=== PATIENT | female | born 1955 | race Caucasian/White ===

== ENCOUNTER 2017-06-13 12:08 | Emergency (ER) | payer OTHER, SELFPAY ==
[2017-06-13 12:25] VITALS: BP 143/80; PULSE 81; RESP 18; TEMP 37.2; O2SAT 98; BMI 27.3
--- NOTE | 2017-06-13 13:34 | PC.NURSE ---
Lac was rvwd by me the minute the patient arrived. Cleaned well w/ NS. Needs sutures and therefore transfer to ER. Pt wants to be sure before transfer and have ER MD evaluate before transfer. Tried multiple times to contact Dr. Lara. He is aware he needs to evaluate but has been suturing and on the phone with . At 1330, he agrees wound needs sutures. Pt transferred to ER for sutures
[2017-06-13 13:43] VITALS: BP 137/76; PULSE 66; RESP 18; TEMP 36.6; O2SAT 97; BMI 20.2
--- NOTE | 2017-06-13 14:16 | HMH.EDGENADL ---
ED Disposition Clinical Impression: Laceration of right forearm without complication, Laceration Disposition: Home, Self-Care Condition on Discharge: Fair Instructions: DI for Laceration Repair Additional Instructions: Keep stitches dry for first 2 days and have stitches taken out in 9 to 10 days Referrals: Can Isaacs MD [Primary Care Provider] - Time of Disposition: 14:40 - Critical Care Critical Care Time: No Attestation: On 06/13/17, the high probability of a clinically significant, sudden or life threatening deterioration of the following system(s) required my full and direct attention, intervention and personal management. The time I documented below is in addition to time spent performing reported procedures but includes the following listed in this critical care notation. Medical Decision Making - Medical Records Medical records reviewed: Yes: I reviewed the patient's medical records. Vital Signs: 06/13/17 12:25 06/13/17 13:43 Temperature 98.9 F 97.9 F Temperature Source Temporal Artery Scan Oral Pulse Rate [Left] 81 66 Respiratory Rate 18 18 Blood Pressure [Left Arm] 143/80 137/76 Blood Pressure Mean [Left Arm] 101 96 Blood Pressure Source [Left Arm] Automatic Cuff Automatic Cuff Blood Pressure Position [Left Arm] Sitting Sitting 02 Sat by Pulse Oximetry 98 97 Oxygen Delivery Method Room Air Room Air - Tony Inquiry Pt receiving controlled substance: No Tony was queried for this patient: No General Adult HPI - General Chief complaint: Wound/Laceration Stated complaint: AO [id number] RIGHT ARM LAC Mode of Arrival: Ambulatory Source of Information: Patient Limitations: No Limitations Description of Symptoms (Recalled from ER Triage Doc. by RN): Pt fell in her home this morning and cut her right forearm on a door threshold...no LOC and no other injury - History of Present Illness HPI narrative: Pt fell in home this AM and cut her right forearm on threshold in bathroom...no loc Onset (ago): hour(s) Location: upper extremity Severity: mild Severity scale (1-10): 2 Quality: sharp Consistency: intermittent Relieving factors: none - Related Data Home Medications Medication Instructions Recorded Confirmed Levothyroxine Sodium 100 mg PO DAILY 06/13/17 06/13/17 [Levothyroxine 100mcg (0.1MG) Tab] Allergies Allergy/AdvReac Type Severity Reaction Status Date / Time No Known Allergies Allergy Verified 06/13/17 12:31 [facility] History I have reviewed the patient's past medical history: Yes Laterality Cases: Right: Other Amputation: No Fractures: No - *Social History Educational Level: Completed High School Smoking Status: Former smoker Tobacco Type: cigarettes #Yrs smoked (if former smoker): 35 Alcohol Intake: never - Psychiatric History Expresses thoughts of harming self/others: None Suicide Plan Description: No Plan ROS Obtained: Yes All systems reviewed & no additional complaints Physical Exam - General General appearance: alert, in no apparent distress - Head Head exam: atraumatic - Eye Eye exam: Present: normal appearance - ENT ENT exam: Present: normal exam - Neck Neck exam: Present: normal inspection - Chest Chest inspection: Present: normal inspection - Respiratory Respiratory exam: Present: normal lung sounds bilaterally - Cardiovascular Cardiovascular exam: Present: regular rate - Abdominal Exam Abdominal exam: Present: soft - Extremities Exam Extremities exam: Present: other (4 cm laceration on right forearm dorsally) - Back Exam Back exam: Present: normal inspection - Neurological Exam Neurological exam: Present: alert, oriented X3, CN II-XII intact - Skin Skin exam: Present: other (laceration as described above) Procedures - Laceration Laceration 1 Site: upper extremity Side (If applicable): right Size (cm): 4 Description: linear Depth: simple, single layer Local Anesthetic: lidocaine 1% Amoun
--- NOTE | 2017-06-13 14:33 | ED_ITS ---
ED Disposition Clinical Impression: Laceration of right forearm without complication, Laceration Disposition: Home, Self-Care Condition on Discharge: Fair Instructions: DI for Laceration Repair Additional Instructions: Keep stitches dry for first 2 days and have stitches taken out in 9 to 10 days Referrals: Can Isaacs MD [Primary Care Provider] - Time of Disposition: 14:40 - Critical Care Critical Care Time: No Attestation: On 06/13/17, the high probability of a clinically significant, sudden or life threatening deterioration of the following system(s) required my full and direct attention, intervention and personal management. The time I documented below is in addition to time spent performing reported procedures but includes the following listed in this critical care notation. Medical Decision Making - Medical Records Medical records reviewed: Yes: I reviewed the patient's medical records. Vital Signs: 06/13/17 12:25 06/13/17 13:43 Temperature 98.9 F 97.9 F Temperature Source Temporal Artery Scan Oral Pulse Rate [Left] 81 66 Respiratory Rate 18 18 Blood Pressure [Left Arm] 143/80 137/76 Blood Pressure Mean [Left Arm] 101 96 Blood Pressure Source [Left Arm] Automatic Cuff Automatic Cuff Blood Pressure Position [Left Arm] Sitting Sitting 02 Sat by Pulse Oximetry 98 97 Oxygen Delivery Method Room Air Room Air - Tony Inquiry Pt receiving controlled substance: No Tony was queried for this patient: No General Adult HPI - General Chief complaint: Wound/Laceration Stated complaint: AO [id number] RIGHT ARM LAC Mode of Arrival: Ambulatory Source of Information: Patient Limitations: No Limitations Description of Symptoms (Recalled from ER Triage Doc. by RN): Pt fell in her home this morning and cut her right forearm on a door threshold...no LOC and no other injury - History of Present Illness HPI narrative: Pt fell in home this AM and cut her right forearm on threshold in bathroom...no loc Onset (ago): hour(s) Location: upper extremity Severity: mild Severity scale (1-10): 2 Quality: sharp Consistency: intermittent Relieving factors: none - Related Data Home Medications Medication Instructions Recorded Confirmed Levothyroxine Sodium 100 mg PO DAILY 06/13/17 06/13/17 [Levothyroxine 100mcg (0.1MG) Tab] Allergies Allergy/AdvReac Type Severity Reaction Status Date / Time No Known Allergies Allergy Verified 06/13/17 12:31 [facility] History I have reviewed the patient's past medical history: Yes Laterality Cases: Right: Other Amputation: No Fractures: No - *Social History Educational Level: Completed High School Smoking Status: Former smoker Tobacco Type: cigarettes #Yrs smoked (if former smoker): 35 Alcohol Intake: never - Psychiatric History Expresses thoughts of harming self/others: None Suicide Plan Description: No Plan ROS Obtained: Yes All systems reviewed & no additional complaints Physical Exam - General General appearance: alert, in no apparent distress - Head Head exam: atraumatic - Eye Eye exam: Present: normal appearance - ENT ENT exam: Present: normal exam - Neck Neck exam: Present: normal inspection - Chest Chest inspection: Present: normal inspection - Respiratory Respira
[2017-06-13 14:56] VITALS: BP 162/76; PULSE 82; RESP 18; TEMP 37.3
== END 2017-06-13 14:56 | disposition home or self-care (01) ==
LOC: UTC 12:33 → ER 13:42
PROVIDERS: Emergency Provider Nurse Practitioner Family; Family Provider Nurse Practitioner Family; PCP Internal Medicine Adolescent Medicine
DX: S51.811A Laceration without foreign body of right forearm, initial encounter (principal); W45.8XXA Other foreign body or object entering through skin, initial encounter; W22.8XXA Striking against or struck by other objects, initial encounter; Y92.012 Bathroom of single-family (private) house as the place of occurrence of the external cause; Z87.891 Personal history of nicotine dependence
CPT/HCPCS: 12002; 90471; 90714; 96372; 99203; 99282

== ENCOUNTER 2017-06-24 14:59 | Emergency (ER) | payer OTHER, SELFPAY | END 2017-06-24 15:17 | disposition home or self-care (01) | PROVIDERS: Emergency Provider Physician Assistant; Family Provider Nurse Practitioner Family; PCP Internal Medicine Adolescent Medicine | DX: S51.811D Laceration without foreign body of right forearm, subsequent encounter (principal) ==

== ENCOUNTER → 2017-08-08 08:33 | Outpatient (CLI) | payer OTHER, SELFPAY ==
[2017-08-08 09:09] LABS: Basophils % 0.4 % (0.1-2.0); Eosinophils # 0.2 K/mm3 (0.0-0.4); Eosinophils % 2.3 % (0.1-12.0); Hematocrit 41.9 % (37.0-47.0); Hemoglobin 14.6 g/dL (12.2-16.2); Lymphocytes # 1.6 K/mm3 (0.7-4.5); Lymphocytes % 26.1 K/mm3 (10-50); Mean Corpuscular HGB Conc 34.9 g/dL (31.8-35.4); Mean Corpuscular Hemoglobin 33.6 pg (27.0-31.2); Mean Corpuscular Volume 96.2 fl (81-99); Mean Platelet Volume 8.5 fl (7.4-10.4); Monocytes # 0.3 K/mm3 (0.1-1.0); Monocytes % 5.2 % (1.7-9.3); Neutrophils # 4.1 K/mm3 (1.8-7.8); Platelet Count 306 K/mm3 (142-424); Red Blood Count 4.36 M/mm3 (4.20-5.40); White Blood Count 6.3 K/mm3 (4.8-10.8)
[2017-08-08 09:14] LABS: Alanine Aminotransferase 29 U/L (12-78); Albumin Level 3.6 gm/dL (3.4-5.0); Albumin/Globulin Ratio 0.9 (1.1-1.8); Alkaline Phosphatase 122 U/L (46-116); Aspartate Amino Transferase 15 U/L (15-37); Bilirubin,Total 0.6 mg/dL (0.2-1.0); Blood Urea Nitrogen 10 mg/dL (7-18); Calcium 8.9 mg/dL (8.5-10.1); Carbon Dioxide 29 mmol/L (21.0-32.0); Chloride 103 mmol/L (98-107); Creatinine,Serum 0.69 mg/dL (0.55-1.02); Estimated Glomerular Filt Rate 86 ml/min (>60); Free T4 (Free Thyroxine) 1.37 ng/dl (0.76-1.46); GFR (African American) 105 ML/MIN (>60); Glucose 103 mg/dL (74-106); Sodium 131 mmol/L (136-145); Thyroid Stimulating Hormone 0.06 uIU/ml (0.358-3.740); Total Protein,Serum 7.6 gm/dL (6.4-8.2)
[2017-08-11 11:52] LABS: Vitamin B12 600 pg/mL (232-1245)
== END ==
PROVIDERS: Visit Provider Nurse Practitioner Family
DX: E03.9 Hypothyroidism, unspecified (principal); H81.10 Benign paroxysmal vertigo, unspecified ear
CPT/HCPCS: 36415; 80053; 82607; 84439; 84443; 85025

== ENCOUNTER → 2017-08-31 09:57 | Outpatient (CLI) | payer OTHER, SELFPAY ==
--- NOTE | 2017-08-31 10:29 | MR_ITS ---
MR head/brain wo/w con HISTORY: Vertigo, visual disturbance/changes, unsteady balance ITS.REASON: POSTURAL VERTIGO, HYPONATREMIA, VISUAL CHANGES ORDERING PHYSICIAN: Can Isaasc MD PATIENT AGE: 62 years COMPARISON: None TECHNIQUE: Standard multiplanar multiecho sequences are performed without and with gadolinium enhancement. FINDINGS: There is a partially empty sella as a normal variant. No midline shift or mass effect is evident. No enhancing lesions. No evidence of acute infarction The cerebellopontine angles, cerebellum, and brainstem are unremarkable. The optic chiasm and corpus callosum have an unremarkable appearance. The hippocampal gyri are unremarkable in the temporal horns are symmetric. No hydrocephalus. No large aneurysms. Small aneurysms may not be detected with this technique and may be better evaluated for with MRA clinically warranted. There is normal white-bennett matter differentiation with no abnormal white matter signal intensity evident. Small amount fluid is present in the left mastoid sinus. No sinus air-fluid level. Incidental note is made of degenerative disc disease with bulging disc along with posterior facet hypertrophy at C3-C4 with canal stenosis of approximately 8 mm. This may be better evaluated with dedicated cervical spine MRI if clinically warranted. IMPRESSION: 1. Negative MRI of the brain without and with contrast. 2. Small amount fluid in the left mastoid sinus. 3. Degenerative disc disease with bulging disc and spinal stenosis at
--- NOTE | 2017-08-31 11:18 | US_ITS ---
US thyroid HISTORY: ITS.REASON: HYPOTHYROIDISM ORDERING PHYSICIAN: Can Isaacs MD PATIENT AGE: 62 years COMPARISON: None FINDINGS: The right lobe is 2.8 x 1 x 1.4 cm. The left lobe is 2.3 x 0.9 x 1.3 cm. Thyroid gland has a heterogeneous cystic spongiform appearance on both sides. No solid nodules are evident.. IMPRESSION: Spongiform cystic appearance of a small thyroid gland bilaterally with no dominant solid nodules evident
== END ==
PROVIDERS: Family Provider Nurse Practitioner Family; PCP Internal Medicine Adolescent Medicine; Visit Provider Internal Medicine Adolescent Medicine
DX: H81.10 Benign paroxysmal vertigo, unspecified ear (principal); E87.1 Hypo-osmolality and hyponatremia; H53.9 Unspecified visual disturbance; E03.9 Hypothyroidism, unspecified
CPT/HCPCS: 70553; 76536; A9576

== ENCOUNTER → 2018-02-09 07:12 | Outpatient (CLI) | payer OTHER, SELFPAY ==
[2018-02-09 08:17] LABS: Alanine Aminotransferase 21 U/L (12-78); Albumin Level 3.7 gm/dL (3.4-5.0); Albumin/Globulin Ratio 1.1 (1.1-1.8); Alkaline Phosphatase 119 U/L (46-116); Anion Gap 8.8 mEq/L (5-15); Aspartate Amino Transferase 10 U/L (15-37); Bilirubin,Total 0.5 mg/dL (0.2-1.0); Blood Urea Nitrogen 10 mg/dL (7-18); Calcium 8.9 mg/dL (8.5-10.1); Carbon Dioxide 30 mmol/L (21.0-32.0); Chloride 108 mmol/L (98-107); Chol/HDL Ratio 3.5 (1-3.5); Cholesterol 214 mg/dL (140-200); Creatinine,Serum 0.88 mg/dL (0.55-1.02); Estimated Glomerular Filt Rate 65 ml/min (>60); GFR (African American) 79 ML/MIN (>60); Globulin 3.3 gm/dl (1.3-3.2); Glucose 102 mg/dL (74-106); HDL Cholesterol 62 mg/dL (29-89); LDL Cholesterol 136 mg/dL (0-130); Potassium 4.8 mmoL/L (3.5-5.1); Sodium 142 mmol/L (136-145); Thyroid Stimulating Hormone 7.26 uIU/ml (0.358-3.740); Triglycerides 78 mg/dL (30-200); VLDL Cholesterol 16 mg/dL (0-40)
== END ==
PROVIDERS: PCP Internal Medicine Adolescent Medicine; Visit Provider Nurse Practitioner Family
DX: E78.00 Pure hypercholesterolemia, unspecified (principal); E03.9 Hypothyroidism, unspecified; H81.10 Benign paroxysmal vertigo, unspecified ear
CPT/HCPCS: 36415; 80053; 80061; 84443

== ENCOUNTER → 2018-02-23 08:09 | Outpatient (CLI) | payer OTHER, SELFPAY ==
--- NOTE | 2018-02-23 08:14 | MM_ITS ---
MM Dig screening mamm BI w/CAD CAD Screening COMPARISON: Digital mammograms with CAD 07/21/2016 and 07/07/2015 INDICATION: There is a history of breast cancer patient's paternal aunt. TECHNIQUE: Standard CC and MLO images were obtained. R2 CAD reviewed. FINDINGS: Moderate fibroglandular densities are seen in the central portions of both breast and the findings are bilateral and symmetrical. There are few benign-appearing calcifications in each breast and there is arterial calcification left breast. There is no suspicious lesion and there are no suspicious microcalcifications. IMPRESSION: Fibrofatty parenchyma no suspicious lesion seen BI-RADS Category: 2 Benign Finding(s) RECOMMENDED FOLLOW-UP: 1YR - 1 YEAR FOLLOW-UP (A letter has been sent to the patient regarding results of the study.)
== END ==
PROVIDERS: Family Provider Nurse Practitioner Family; PCP Internal Medicine Adolescent Medicine; Visit Provider Nurse Practitioner Family
DX: Z12.31 Encounter for screening mammogram for malignant neoplasm of breast (principal)
CPT/HCPCS: 77067

== ENCOUNTER → 2018-03-22 08:10 | Outpatient (CLI) | payer OTHER, SELFPAY ==
[2018-03-22 10:49] LABS: Thyroid Stimulating Hormone 0.22 uIU/ml (0.358-3.740)
== END ==
PROVIDERS: PCP Nurse Practitioner Family; Visit Provider Nurse Practitioner Family
DX: E03.9 Hypothyroidism, unspecified (principal)
CPT/HCPCS: 36415; 84443

== ENCOUNTER → 2018-07-27 09:25 | Outpatient (CLI) | payer OTHER, SELFPAY ==
[2018-07-27 10:46] LABS: Alanine Aminotransferase 19 U/L (12-78); Albumin Level 3.5 gm/dL (3.4-5.0); Albumin/Globulin Ratio 1.1 (1.1-1.8); Alkaline Phosphatase 115 U/L (46-116); Aspartate Amino Transferase 11 U/L (15-37); Bilirubin,Total 0.4 mg/dL (0.2-1.0); Blood Urea Nitrogen 12 mg/dL (7-18); Carbon Dioxide 28 mmol/L (21.0-32.0); Chloride 105 mmol/L (98-107); Chol/HDL Ratio 3.1 (1-3.5); Cholesterol 211 mg/dL (140-200); Creatinine,Serum 0.69 mg/dL (0.55-1.02); Estimated Glomerular Filt Rate 86 ml/min (>60); Free T4 (Free Thyroxine) 1.27 ng/dl (0.76-1.46); GFR (African American) 104 ML/MIN (>60); Globulin 3.1 gm/dl (1.3-3.2); Glucose 93 mg/dL (74-106); HDL Cholesterol 69 mg/dL (29-89); LDL Cholesterol 130 mg/dL (0-130); Sodium 140 mmol/L (136-145); Thyroid Stimulating Hormone 0.14 uIU/ml (0.358-3.740); Total Protein,Serum 6.6 gm/dL (6.4-8.2); Triglycerides 58 mg/dL (30-200); VLDL Cholesterol 12 mg/dL (0-40)
== END ==
PROVIDERS: Visit Provider Nurse Practitioner Family
DX: E78.00 Pure hypercholesterolemia, unspecified (principal); E03.9 Hypothyroidism, unspecified
CPT/HCPCS: 36415; 80053; 80061; 84439; 84443

== ENCOUNTER → 2018-08-28 08:51 | Outpatient (CLI) | payer OTHER, SELFPAY ==
[2018-08-28 10:39] LABS: Blood Urea Nitrogen 9 mg/dL (7-18); Estimated Glomerular Filt Rate 85 ml/min (>60); GFR (African American) 103 ML/MIN (>60)
== END ==
PROVIDERS: Visit Provider Nurse Practitioner Family
DX: R91.1 Solitary pulmonary nodule (principal)
CPT/HCPCS: 36415; 82565; 84520

== ENCOUNTER → 2018-08-30 09:22 | Outpatient (CLI) | payer OTHER, SELFPAY ==
--- NOTE | 2018-08-30 09:28 | CT_ITS ---
CT chest wo/w con HISTORY: Follow-up pulmonary nodule ITS.REASON: PULMONARY NODULE ORDERING PHYSICIAN: Kasandra Martin PATIENT AGE: 63 years COMPARISON: 01/14/2017 Technique: Axial images obtained without and following the administration of 75 mL of Optiray 350 . Sagittal, and coronal reformatted images are also generated and reviewed. All CT scans at the facility use one or more dose reduction, viz: automated exposure control, ma/kV adjustment per patient size (including targeted exams where dose is matched to indication, i.e. head), or iterative reconstruction technique. FINDINGS: No mediastinal or hilar mass or adenopathy. There is normal heart size without evidence of pericardial effusion. No evidence of aortic aneurysm or central pulmonary embolus. The unenhanced images do not demonstrate any coronary artery calcifications. There is a small hiatal hernia with mild thickening of the distal esophagus nonspecific There are a few faint scattered nodular opacities as seen on the previous exam which are not significant changed largest in the right apex at approximately 5 mm which appears stable. No new nodules are demonstrated. No effusions or infiltrates. No enhancing lesions. IMPRESSION: Overall stable CT appearance of the chest with no change in the scattered small pulmonary nodular opacities. No acute finding
== END ==
PROVIDERS: PCP Nurse Practitioner Family; Visit Provider Nurse Practitioner Family
DX: R91.1 Solitary pulmonary nodule (principal)
CPT/HCPCS: 71270

== ENCOUNTER → 2018-10-26 07:07 | Outpatient (CLI) | payer OTHER, SELFPAY ==
[2018-10-26 10:00] LABS: Alanine Aminotransferase 25 U/L (12-78); Albumin Level 3.7 gm/dL (3.4-5.0); Albumin/Globulin Ratio 1.2 (1.1-1.8); Alkaline Phosphatase 123 U/L (46-116); Anion Gap 15.7 mEq/L (5-15); Aspartate Amino Transferase 15 U/L (15-37); Bilirubin,Total 0.6 mg/dL (0.2-1.0); Blood Urea Nitrogen 7 mg/dL (7-18); Carbon Dioxide 27 mmol/L (21.0-32.0); Chloride 105 mmol/L (98-107); Chol/HDL Ratio 2.4 (1-3.5); Cholesterol 158 mg/dL (140-200); Creatinine,Serum 0.74 mg/dL (0.55-1.02); Estimated Glomerular Filt Rate 80 ml/min (>60); GFR (African American) 96 ML/MIN (>60); Globulin 3.2 gm/dl (1.3-3.2); Glucose 98 mg/dL (74-106); HDL Cholesterol 65 mg/dL (29-89); LDL Cholesterol 80 mg/dL (0-130); Potassium 4.7 mmoL/L (3.5-5.1); Sodium 143 mmol/L (136-145); Total Protein,Serum 6.9 gm/dL (6.4-8.2); Triglycerides 64 mg/dL (30-200); VLDL Cholesterol 13 mg/dL (0-40)
== END ==
PROVIDERS: Visit Provider Nurse Practitioner Family
DX: E78.00 Pure hypercholesterolemia, unspecified (principal); E03.9 Hypothyroidism, unspecified
CPT/HCPCS: 36415; 80053; 80061; 84443

== ENCOUNTER → 2018-11-02 11:20 | Outpatient (CLI) | payer OTHER, SELFPAY ==
--- NOTE | 2018-11-02 11:25 | XR_ITS ---
XR sacroiliac joint BI min 3V CLINICAL INDICATION: ITS.REASON: LEFT HIP PAIN,SACROCOCCYGEAL DISORDER ORDERING PHYSICIAN: Kasandra Martin APRN PATIENT AGE: 63 years Comparison: None FINDINGS: Its side joint 7 unremarkable appearance. There are mild osteoarthritic changes of both hips. IMPRESSION: Negative SI joints
--- NOTE | 2018-11-02 11:25 | XR_ITS ---
XR hip LT 2-3V w/pelvis HISTORY: ITS.REASON: LEFT HIP PAIN,SACROCOCCYGEAL DISORDER ORDERING PHYSICIAN: Kasandra Martin APRN PATIENT AGE: 63 years COMPARISON: None FINDINGS: Mild osteoarthritic changes are present involving the both hips. No fracture or dislocation. IMPRESSION: Osteoarthritis of the hips
== END ==
PROVIDERS: PCP Nurse Practitioner Family; Visit Provider Nurse Practitioner Family
DX: M25.552 Pain in left hip (principal); G89.29 Other chronic pain; M16.0 Bilateral primary osteoarthritis of hip; M53.3 Sacrococcygeal disorders, not elsewhere classified
CPT/HCPCS: 72202; 73502

== ENCOUNTER 2018-12-14 08:30 | Outpatient (RCR) | payer OTHER, SELFPAY ==
--- NOTE | 2018-11-08 08:42 | HMH.PTOPEV ---
PT Outpatient Evaluation Rehab PT Outpatient Evaluation Start: 11/08/18 08:32 Freq: Status: Active Protocol: Document 11/08/18 08:32 RADHA (Rec: 11/08/18 08:42 [email or web address] [id number]) Electronically Signed By Rush Li, PT 11/08/18 08:32 Outpatient Therapy Subjective History Subjective History Patient is a 63 year old female presenting to outpatient PT with reports of chronic L hip pain of insidious onset starting approximately 1 year ago. Most recent diagnostics indicate L hip OA per patient report. Comorbidities include hypothyroidism and HLD. Special tests indicate L upslip of the innominant. Signs and symptoms consistent with L trochanteric bursitis. Chief Complaint Pain Symptom Type Ache,Sharp Symptoms Relieved By Rest/Positioning,OTC Meds Symptoms Aggravated By Standing,Physical Activity, Walking Prior Functional Limitations None Current Functional Limitations Lifting,Housework,Sleeping, Standing,Squatting,Recreation Activity,Walking,Stairs Symptom Description Intermittent Level of pain today (0-10) 5 Pain scale - at its best (0-10) 0 Pain scale - at its worst (0-10) 5 Hip/Knee Eval Gait Observation General Gait Pattern Observation No Deviations/Normal Assistive Device Assistive Devices None / NA Palpation Tenderness left Knee Palpation Overall Comment L greater trochanter Hip Palpation Findings Tenderness MMT Hip Flexion Strength Grade 4 Good Hip Abduction Strength Grade 4 Good Hip Adduction Strength Grade 4- Good- Hip External Rotation Strength Grade 4- Good- Hip Internal Rotation Strength Grade 4- Good- Knee Extension Strength Grade 4 Good Knee Flexion Strength Grade 4 Good ROM Hip Flexion w/Knee Flexed Active Range 110 of Motion (degrees) Hip Flexion w/Knee Extended Active Range 90 of Motion (degrees) Hip Abduction Active Range of Motion ( 41 degrees) Hip Extension Active Range of Motion ( 5 degrees) Hip External Rotation Active Range of 40 Motion (degrees) Hip Internal Rotation Active Range of 7 Motion (degrees) Knee ROM Reason Not Measured Within Functional Limits DTR bilateral Rt Patellar 2+ Lt Patellar
== END 2018-12-14 08:35 | disposition home or self-care (01) ==
LOC: PT 08:30
PROVIDERS: Visit Provider Nurse Practitioner Family
DX: M25.552 Pain in left hip (principal)
CPT/HCPCS: 97010; 97014; 97033; 97110; 97163; G0283

== ENCOUNTER → 2019-01-30 08:19 | Outpatient (CLI) | payer OTHER, SELFPAY ==
[2019-01-30 10:24] LABS: Free T4 (Free Thyroxine) 1.36 ng/dl (0.76-1.46); Thyroid Stimulating Hormone 0.13 uIU/ml (0.358-3.740)
== END ==
PROVIDERS: Visit Provider Nurse Practitioner Family
DX: E03.9 Hypothyroidism, unspecified (principal)
CPT/HCPCS: 36415; 84439; 84443

== ENCOUNTER → 2019-07-28 07:36 | Outpatient (CLI) | payer OTHER, SELFPAY ==
[2019-07-28 08:18] LABS: Basophils % 0.6 % (0.1-2.0); Eosinophils # 0.2 K/mm3 (0.0-0.4); Eosinophils % 2.7 % (0.1-12.0); Hematocrit 42.1 % (37.0-47.0); Hemoglobin 14.1 g/dL (12.2-16.2); Lymphocytes # 1.8 K/mm3 (0.7-4.5); Lymphocytes % 29.5 % (10-50); Mean Corpuscular HGB Conc 33.5 g/dL (31.8-35.4); Mean Corpuscular Hemoglobin 31.4 pg (27.0-31.2); Mean Corpuscular Volume 93.8 fl (81-99); Mean Platelet Volume 8.9 fl (7.4-10.4); Monocytes # 0.3 K/mm3 (0.1-1.0); Monocytes % 5.1 % (1.7-9.3); Neutrophils # 3.8 K/mm3 (1.8-7.8); Neutrophils % 62.2 % (37.0-80.0); Platelet Count 294 K/mm3 (142-424); Red Blood Count 4.49 M/mm3 (4.20-5.40); White Blood Count 6.1 K/mm3 (4.8-10.8)
[2019-07-28 08:47] LABS: Chloride 107 mmol/L (98-107)
[2019-07-28 08:48] LABS: Potassium 4.2 mmoL/L (3.5-5.1); Sodium 140 mmol/L (136-145)
[2019-07-28 08:50] LABS: Blood Urea Nitrogen 11 mg/dl (7-17); Estimated Glomerular Filt Rate 101 ml/min (>60); GFR (African American) 122 ML/MIN (>60)
[2019-07-28 08:51] LABS: Alanine Aminotransferase 17 U/L (12-78); Albumin Level 3.8 g/dl (3.5-5.0); Albumin/Globulin Ratio 1.5 (1.1-1.8); Alkaline Phosphatase 90 U/L (38-126); Anion Gap 12.2 mEq/L (5-15); Aspartate Amino Transferase 22 U/L (14-36); Bilirubin,Total 0.5 mg/dl (0.2-1.3); Calcium 9.1 mg/dl (8.4-10.2); Carbon Dioxide 25 mmol/L (22.0-30.0); Chol/HDL Ratio 2.4 (1-3.5); Cholesterol 151 mg/dl (140-200); Globulin 2.5 g/dL (1.3-3.2); Glucose 99 mg/dl (74-100); HDL Cholesterol 62 mg/dl (40-60); Total Protein,Serum 6.3 g/dl (6.3-8.2); Triglycerides 70 mg/dl (30-150); VLDL Cholesterol 14 mg/dL (0-40)
[2019-07-28 09:03] LABS: Direct LDL Cholesterol 81.66 mg/dL (100-129)
[2019-07-28 09:07] LABS: Free T4 (Free Thyroxine) 1.26 ng/dl (0.78-2.19)
[2019-07-28 09:21] LABS: Thyroid Stimulating Hormone 0.14 uIU/mL (0.465-4.68)
== END ==
PROVIDERS: Visit Provider Nurse Practitioner Family
DX: E03.9 Hypothyroidism, unspecified (principal); E78.00 Pure hypercholesterolemia, unspecified; Z72.0 Tobacco use
CPT/HCPCS: 36415; 80053; 80061; 84439; 84443; 85025

== ENCOUNTER → 2019-09-07 07:56 | Outpatient (CLI) | payer OTHER, SELFPAY ==
--- NOTE | 2019-09-07 08:13 | CT_ITS ---
PROCEDURE: CT CHEST WO/W CON CLINCAL INDICATION: PULMONARY NODULE COMPARISON: Follow-up TECHNIQUE: IV Contrast: 75ml Optiray 350 Axial images obtained with sagittal and coronal reformats. All CT scans at the facility use one or more dose reduction, viz: automated exposure control, ma/kV adjustment per patient size (including targeted exams where dose is matched to indication, i.e. head), or iterative reconstruction technique. FINDINGS: HEART AND MEDIASTINAL STRUCTURES: There are calcified right hilar and mediastinal lymph nodes indicating healed granulomatous disease. A few noncalcified nonspecific nonenlarged mediastinal lymph nodes are also noted. Noncontrast exam makes assessment for hilar lymphadenopathy difficult. LUNGS AND PLEURAL SPACES: Previously described scattered pulmonary nodules are again noted and they are not significantly changed. One of the largest nodules in the anterior subpleural left upper lobe appears bilobulated and measures approximately 4 millimeters. Interval stability of the nodules would favor benign etiology possibly even noncalcified granulomas in the presence of healed granulomatous disease. There is no acute infiltrate. BONY STRUCTURES: No acute bony abnormalities apparent. UPPER ABDOMEN: Multiple calcified splenic granulomas are noted. ADDITIONAL FINDINGS: No other significant abnormalities. IMPRESSION: No acute cardiopulmonary pathology. Multiple small pulmonary nodules have a stable appearance compared to 08/30/2018 Dictated by: Tomasz Gonzalez 09/07/2019 10:02 Electronically signed by Tomasz Gonzalez in [place] 09/07/2019 10:02
--- NOTE | 2019-09-07 08:13 | MM_ITS ---
PROCEDURE: MM DIG SCREENING MAMM BI W/CAD Digital Breast Tomosynthesis Included CLINICAL INDICATION: SCREENING COMPARISON: [facility] DIG MAMM-SCREEN CARRIE from 07/07/2015 [facility] DIG MAMM-SCREEN CARRIE W/CAD from 07/21/2016 [facility] MM Dig screening mamm BI w/CAD from 02/23/2018 TECHNIQUE: Standard CC and MLO images and 3D Tomosynthesis was obtained. R2 CAD reviewed. FINDINGS: The breasts are dense. There is a new benign appearing circumscribed nodule seen in the medial right breast on the CC view approximately 3 millimeters. This appears to lie superior to the nipple line on the tomosynthesis views. It is not confirmed with certainty on the MLO views. The finding is probably benign. Consider ultrasound for further assessment. There are increasing clustered microcalcifications in the central right breast. Additional magnification views are recommended. Additionally clustered microcalcifications in the upper-outer quadrant of the right breast are noted. These are not significantly changed from 02/23/2018 and are probably benign. Additional magnification views are recommended. The appearance of the left breast is stable. Benign appearing lymph nodes project over both pectoral muscles. IMPRESSION: BI-RAD Category: 0 Need Additional Imaging Evaluation (A letter has been sent to the patient regarding results of the study.) Dictated by: Tomasz Gonzalez 09/07/2019 11:36 Electronically signed by Tomasz Gonzalez in [place] 09/07/2019 11:36
[2019-09-07 08:22] LABS: Blood Urea Nitrogen 9 mg/dl (7-17); Estimated Glomerular Filt Rate 101 ml/min (>60); GFR (African American) 122 ML/MIN (>60)
== END ==
PROVIDERS: PCP Nurse Practitioner Family; Visit Provider Nurse Practitioner Family
DX: R91.1 Solitary pulmonary nodule (principal)
CPT/HCPCS: 36415; 71270; 77063; 77067; 82565; 84520; Q9967

== ENCOUNTER → 2019-09-21 09:22 | Outpatient (CLI) | payer OTHER, SELFPAY ==
--- NOTE | 2019-09-21 09:25 | MM_ITS ---
PROCEDURE: MM DIG MAMM DX UNILAT RT CAD Digital Breast Tomosynthesis Included CLINICAL INDICATION: ABNORMAL MAMM Follow-up breast calcifications the COMPARISON: [facility] DIG MAMM-SCREEN CARRIE W/CAD from 07/21/2016 [facility] MM Dig screening mamm BI w/CAD from 02/23/2018 MM DIG SCREENING MAMM BI W/CAD from 09/07/2019 US BREAST RT COMPLETE from 09/21/2019 TECHNIQUE: Standard CC and MLO images and 3D Tomosynthesis was obtained. R2 CAD reviewed. FINDINGS: There is average fibroglandular tissue. There is a suspicious cluster of microcalcifications in the central aspect of the right breast. These contain both coarse and stippled pleomorphic calcifications and biopsy is suggested. An additional smaller area microcalcifications is present in the superior aspect of the right breast slightly to lateral. These are also somewhat suspicious and have increased compared to an older study of 07/11/2016. Biopsy recommended. Right breast ultrasound: No cystic or solid lesions are evident. IMPRESSION: There are 2 suspicious areas of calcification in the right breast. Stereotactic biopsy recommended of both areas. BI-RAD Category: 4 Suspicious Abnormality - Biopsy Considered FOLLOW-UP: BIO Biopsy Recommended (A letter has been sent to the patient regarding results of the study.) Dictated by: Didier Valenzuela MD 10/05/2019 12:55 Electronically signed by Didier Valenzuela MD in [place] 10/05/2019 12:55
== END ==
PROVIDERS: PCP Nurse Practitioner Family; Visit Provider Internal Medicine Adolescent Medicine
DX: R92.8 Other abnormal and inconclusive findings on diagnostic imaging of breast (principal)
CPT/HCPCS: 76641; 77061; 77065; G0279

== ENCOUNTER → 2019-10-17 09:27 | Outpatient (CLI) | payer OTHER, SELFPAY ==
--- NOTE | 2019-10-17 09:33 | MM_ITS ---
PROCEDURE: MM CLIP PLACEMENT RT Digital Breast Tomosynthesis Included CLINICAL INDICATION: ABN MAMM Abnormal calcifications right breast TECHNIQUE: Following obtaining informed consent and time-out procedure, the patient was placed on the stereotactic table and the abnormality was localized in the most appropriate projection. The breast was prepped in the routine manner, with sterile prep and the overlying skin anesthetized. A 3 to 4 mm skin incision was performed and the 9 gauge sorus vacuum-assisted core biopsy needle was advanced to the region of the calcification. Pre- and post fire images were obtained. After adequate positioning relative to the calcifications was ensured, multiple biopsies were obtained in the region of the calcifications specifically. The core biopsies obtained were sent for specimen mammography. After the calcifications were indeed identified on the specimen mammogram, the procedure was terminated. A tiny titanium nonferromagnetic MicroMark was positioned through the mammotome needle into the biopsy site. Pathology: Benign breast parenchyma with mildly proliferative fibrocystic changes and associated microcalcifications. Negative for atypical ductal hyperplasia, DCIS, or invasive carcinoma IMPRESSION: 1. Successful stereotactic vacuum-assisted core biopsy of the breast calcifications. 2. Successful placement of a titanium metal MicroMark. 3. Pathology shows benign findings.. 4. No noted complications. SPECIMEN RADIOGRAPH: The mammographically evident calcifications from the prior study are currently evident within the Stephenie dish and within the specimens obtained during mammotome procedure. This is considered an adequate specimen and the procedure was terminated. IMPRESSION: Successful removal of described breast calcifications. BREAST MAMMOGRAM: Compared to the prior study, the previously noted calcification have been removed. A small MicroMark clip was inserted into the region of the calcifications. There is evidence of soft tissue changes in the region of the biopsy was soft tissue gas and edema. 5. Adequate placement of the MicroMark clip postbiopsy. 6. Postbiopsy changes within the breast. 7. The patient had 2 different clusters of microcalcification. The most suspicious cluster was biopsied. Discussion was had with the patient on whether to go ahead do the 2nd less suspicious appearing area of calcifications. The patient desires to follow those calcifications in 6 months which is appropriate. Therefore biopsy was not performed of the 2nd cluster of calcifications. 8. Recommend follow-up mammogram of the right breast in 6 months the Dictated by: Didier Valenzuela MD 10/24/2019 18:04 Electronically signed by Didier Valenzuela MD in [place] 10/24/2019 18:04
== END ==
PROVIDERS: PCP Nurse Practitioner Family; Visit Provider Internal Medicine Adolescent Medicine
DX: R92.8 Other abnormal and inconclusive findings on diagnostic imaging of breast (principal)
CPT/HCPCS: 19081; 76098; 77065

== ENCOUNTER → 2020-01-29 07:22 | Outpatient (CLI) | payer OTHER, SELFPAY ==
[2020-01-29 08:10] LABS: Chloride 106 mmol/L (98-107); Potassium 4.5 mmoL/L (3.5-5.1); Sodium 140 mmol/L (136-145)
[2020-01-29 08:13] LABS: Alanine Aminotransferase 28 U/L (12-78); Albumin/Globulin Ratio 1.3 (1.1-1.8); Alkaline Phosphatase 110 U/L (38-126); Anion Gap 9.5 mEq/L (5-15); Aspartate Amino Transferase 31 U/L (14-36); Bilirubin,Total 0.6 mg/dl (0.2-1.3); Blood Urea Nitrogen 8 mg/dl (7-17); Carbon Dioxide 29 mmol/L (22.0-30.0); Cholesterol 157 mg/dl (140-200); Estimated Glomerular Filt Rate 101 ml/min (>60); GFR (African American) 122 ML/MIN (>60); Globulin 3.1 g/dL (1.3-3.2); Total Protein,Serum 7.1 g/dl (6.3-8.2); Triglycerides 72 mg/dl (30-150); VLDL Cholesterol 14 mg/dL (0-40)
[2020-01-29 08:14] LABS: Calcium 9.4 mg/dl (8.4-10.2); Chol/HDL Ratio 2.3 (1-3.5); Glucose 110 mg/dl (74-100); HDL Cholesterol 67 mg/dl (40-60)
[2020-01-29 08:25] LABS: Direct LDL Cholesterol 71.97 mg/dL (100-129)
[2020-01-29 08:45] LABS: Thyroid Stimulating Hormone 0.02 uIU/mL (0.465-4.68)
[2020-01-29 09:58] LABS: Free T4 (Free Thyroxine) 1.67 ng/dl (0.78-2.19)
== END ==
PROVIDERS: Visit Provider Nurse Practitioner Family
DX: E03.9 Hypothyroidism, unspecified (principal)
CPT/HCPCS: 36415; 80053; 80061; 84439; 84443

== ENCOUNTER → 2020-04-23 13:42 | Outpatient (CLI) | payer OTHER, SELFPAY ==
--- NOTE | 2020-04-23 13:44 | MM_ITS ---
PROCEDURE: MM DIG MAMM DX UNILAT RT CAD Digital Breast Tomosynthesis Included CLINICAL INDICATION: ABN MAMM OF RT BREAST COMPARISON: MG MM DIG SCREENING MAMM BI W/CAD from 09/07/2019 MG MM DIG MAMM DX UNILAT RT CAD from 09/21/2019 MG MM SURGICAL SPECIMEN RT from 10/17/2019 MG MM CLIP PLACEMENT RT from 10/17/2019 MG MM STEREOTACTIC LOC RT from 10/17/2019 TECHNIQUE: Standard CC and MLO images and 3D Tomosynthesis was obtained. R2 CAD reviewed. FINDINGS: Status post right-sided breast biopsy with micro marker clip in place. Previously noted microcalcifications are no longer apparent. The small cluster microcalcifications are noted in the superior aspect of the right breast unchanged. No malignant appearing mass or malignant-appearing microcalcification. IMPRESSION: Recommend resume screening mammogram in September 2020 BI-RAD Category: 2 Benign Finding(s) FOLLOW-UP: 6M 6Month Follow-up (A letter has been sent to the patient regarding results of the study.) Dictated by: Didier Valenzuela MD 04/25/2020 11:52 Didier Valenzuela MD in [place] 04/25/2020 11:52
== END ==
PROVIDERS: PCP Nurse Practitioner Family; Visit Provider Nurse Practitioner Family
DX: R92.8 Other abnormal and inconclusive findings on diagnostic imaging of breast (principal)
CPT/HCPCS: 77061; 77065; G0279

== ENCOUNTER → 2020-05-27 08:51 | Outpatient (CLI) | payer OTHER, SELFPAY ==
[2020-05-27 09:57] LABS: Chloride 105 mmol/L (98-107)
[2020-05-27 09:58] LABS: Potassium 4.2 mmoL/L (3.5-5.1); Sodium 138 mmol/L (136-145)
[2020-05-27 10:01] LABS: Anion Gap 10.2 mEq/L (5-15); Blood Urea Nitrogen 13 mg/dl (7-17); Calcium 9.5 mg/dl (8.4-10.2); Carbon Dioxide 27 mmol/L (22.0-30.0); Estimated Glomerular Filt Rate 84 ml/min (>60); GFR (African American) 102 ML/MIN (>60); Glucose 113 mg/dl (74-100)
[2020-05-27 10:16] LABS: Free T4 (Free Thyroxine) 1.73 ng/dl (0.78-2.19)
[2020-05-27 10:31] LABS: Thyroid Stimulating Hormone 0.02 uIU/mL (0.465-4.68)
[2020-05-27 11:44] LABS: Hemoglobin A1C 5.5 % (4.0-6.0)
== END ==
PROVIDERS: Visit Provider Nurse Practitioner Family
DX: E03.9 Hypothyroidism, unspecified (principal); R73.01 Impaired fasting glucose
CPT/HCPCS: 36415; 80048; 83036; 84439; 84443

== ENCOUNTER → 2020-11-24 07:59 | Outpatient (CLI) | payer SELFPAY ==
[2020-11-24 10:23] LABS: Chloride 103 mmol/L (98-107); Potassium 4.4 mmoL/L (3.5-5.1); Sodium 139 mmol/L (136-145)
[2020-11-24 10:26] LABS: Alanine Aminotransferase 18 U/L (12-78); Albumin Level 4.1 g/dl (3.5-5.0); Albumin/Globulin Ratio 1.6 (1.1-1.8); Alkaline Phosphatase 114 U/L (38-126); Anion Gap 12.4 mEq/L (5-15); Aspartate Amino Transferase 24 U/L (14-36); Bilirubin,Total 0.9 mg/dl (0.2-1.3); Blood Urea Nitrogen 7 mg/dl (7-17); Carbon Dioxide 28 mmol/L (22.0-30.0); Cholesterol 153 mg/dl (140-200); Estimated Glomerular Filt Rate 101 ml/min (>60); GFR (African American) 122 ML/MIN (>60); Globulin 2.6 g/dL (1.3-3.2); Total Protein,Serum 6.7 g/dl (6.3-8.2); Triglycerides 87 mg/dl (30-150); VLDL Cholesterol 17 mg/dL (0-40)
[2020-11-24 10:27] LABS: Calcium 9.1 mg/dl (8.4-10.2); Chol/HDL Ratio 2.4 (1-3.5); Glucose 93 mg/dl (74-100); HDL Cholesterol 65 mg/dl (40-60)
[2020-11-24 10:37] LABS: Direct LDL Cholesterol 69.57 mg/dL (100-129)
[2020-11-24 10:43] LABS: Free T4 (Free Thyroxine) 1.62 ng/dl (0.78-2.19)
[2020-11-24 10:58] LABS: Thyroid Stimulating Hormone 0.03 uIU/mL (0.465-4.68)
== END ==
PROVIDERS: Visit Provider Nurse Practitioner Family
DX: E03.9 Hypothyroidism, unspecified (principal); E78.00 Pure hypercholesterolemia, unspecified
CPT/HCPCS: 36415; 80053; 80061; 84439; 84443

== ENCOUNTER → 2021-01-14 07:48 | Outpatient (CLI) | payer OTHER, SELFPAY ==
--- NOTE | 2021-01-14 | CT_ITS ---
PROCEDURE: CT LUNG SCREENING CLINICAL INDICATION: SMOKER Current smoker, 30 pack year smoking history COMPARISON: CT CT CHEST WO/W CON from 09/07/2019 MG MM DIG SCREENING MAMM BI W/CAD from 01/14/2021 TECHNIQUE: The exam was performed on a [employer] Speed [address] scanner using 2.90 mGy CTDI. A low dose helical CT CHEST was performed on a multi-detector scanner. All CT scans at the facility use one or more dose reduction, viz: automated exposure control, ma/kV adjustment per patient size (including targeted exams where dose is matched to indication, i.e. head), or iterative reconstruction technique. The LDCT was performed in a facility that meets the criteria for the screening program. Data regarding this exam was submitted to ACR which is an approved registry. The order for this exam indicates that it came as a result of a lung cancer screening counseling shard decision-making visit that included all the elements required of such a visit including smoking cessation. The radiologist interpreting this exam meets the [facility] criteria for the LDCT lung cancer screening program. The exam is reported using the Lung-RADS classification scale and reported to the ACR registry. NOTE: This study was performed for the specific purposes of lung cancer screening and is not an alternative to diagnostic chest CT. RADIATION DOSE: CTDI vol(CT dose Index-volume) = 2.90mG DLP (Dose Length Product) = 96.38 mGcm FINDINGS: COPD changes with scattered areas of scarring and scattered small pulmonary nodular opacities not significantly changed. No suspicious pulmonary nodules apparent. OTHER FINDINGS: No other pertinent findings evident. IMPRESSION: Lung-RADS Category 2 Benign Appearance or Behavior Follow-up: Continue annual screening with LDCT in 12 months Dictated by: Didier Valenzuela MD 01/19/2021 07:19 Didier Valenzuela MD in [place] 01/19/2021 07:19
--- NOTE | 2021-01-14 07:54 | MM_ITS ---
PROCEDURE: MM DIG SCREENING MAMM BI W/CAD Digital Breast Tomosynthesis Included CLINICAL INDICATION: SCREENING COMPARISON: MG SCBI MM Dig screening mamm BI w/CAD from 02/23/2018 MG MM DIG SCREENING MAMM BI W/CAD from 09/07/2019 MG MM STEREOTACTIC LOC RT from 10/17/2019 MG MM CLIP PLACEMENT RT from 10/17/2019 MG MM SURGICAL SPECIMEN RT from 10/17/2019 MG MM DIG MAMM DX UNILAT RT CAD from 04/23/2020 TECHNIQUE: Standard CC and MLO images and 3D Tomosynthesis was obtained. R2 CAD reviewed. FINDINGS: Average to dense fibroglandular tissue. Biopsy clip is present in the central to posterior aspect of the right breast in the retroareolar region. Benign-appearing calcifications in the upper breast central 1/3. No suspicious appearing mass, malignant-appearing microcalcification, architectural distortion, or skin thickening. IMPRESSION: Benign findings. No evidence of malignancy BI-RAD Category: 2 Benign Finding FOLLOW-UP: 1 YR 1 Year Follow-up (A letter has been sent to the patient regarding results of the study.) Dictated by: Didier Valenzuela MD 01/21/2021 18:30 Didier Valenzuela MD in [place] 01/21/2021 18:30
== END ==
PROVIDERS: PCP Nurse Practitioner Family; Visit Provider Nurse Practitioner Family
DX: Z87.891 Personal history of nicotine dependence (principal); Z12.2 Encounter for screening for malignant neoplasm of respiratory organs; Z12.31 Encounter for screening mammogram for malignant neoplasm of breast
CPT/HCPCS: 71271; 77063; 77067

== ENCOUNTER → 2021-03-17 09:47 | Outpatient (CLI) | payer OTHER, SELFPAY | PROVIDERS: Visit Provider Nurse Practitioner | DX: Z20.822 Contact with and (suspected) exposure to COVID-19 (principal) | CPT/HCPCS: C9803; U0003; U0005 ==

== ENCOUNTER → 2021-05-23 08:21 | Outpatient (CLI) | payer MEDICARE, OTHER, SELFPAY ==
[2021-05-23 08:44] LABS: Basophils # 0.1 K/mm3 (0-0.2); Basophils % 0.9 % (0.1-2.0); Eosinophils # 0.2 K/mm3 (0.0-0.4); Eosinophils % 3.7 % (0.1-12.0); Hematocrit 41.8 % (37.0-47.0); Lymphocytes # 1.7 K/mm3 (0.7-4.5); Lymphocytes % 27.9 % (10-50); Mean Corpuscular Hemoglobin 33.1 pg (27.0-31.2); Mean Corpuscular Volume 91.9 fl (81-99); Mean Platelet Volume 8.8 fl (7.4-10.4); Monocytes # 0.3 K/mm3 (0.1-1.0); Monocytes % 5.3 % (1.7-9.3); Neutrophils # 3.7 K/mm3 (1.8-7.8); Neutrophils % 62.1 % (37.0-80.0); Platelet Count 364 K/mm3 (142-424); Red Blood Count 4.55 M/mm3 (4.20-5.40); Red Cell Distribution Width 12.2 % (11.5-17.5)
[2021-05-23 09:28] LABS: Alanine Aminotransferase 27 U/L (12-78); Albumin Level 4.2 g/dl (3.5-5.0); Albumin/Globulin Ratio 1.4 (1.1-1.8); Alkaline Phosphatase 104 U/L (38-126); Anion Gap 10.2 mEq/L (5-15); Aspartate Amino Transferase 31 U/L (14-36); Bilirubin,Total 0.5 mg/dl (0.2-1.3); Blood Urea Nitrogen 9 mg/dl (7-17); Calcium 8.9 mg/dl (8.4-10.2); Carbon Dioxide 29 mmol/L (22.0-30.0); Chloride 104 mmol/L (98-107); Chol/HDL Ratio 2.1 (1-3.5); Cholesterol 152 mg/dl (140-200); Estimated Glomerular Filt Rate 100 ml/min (>60); GFR (African American) 121 ML/MIN (>60); Globulin 2.9 g/dL (1.3-3.2); Glucose 98 mg/dl (74-100); HDL Cholesterol 74 mg/dl (40-60); Potassium 4.2 mmoL/L (3.5-5.1); Sodium 139 mmol/L (136-145); Total Protein,Serum 7.1 g/dl (6.3-8.2); Triglycerides 82 mg/dl (30-150); VLDL Cholesterol 16 mg/dL (0-40)
[2021-05-23 09:39] LABS: Direct LDL Cholesterol 68.17 mg/dL (100-129)
[2021-05-23 09:43] LABS: Free T4 (Free Thyroxine) 1.55 ng/dl (0.78-2.19)
[2021-05-23 09:58] LABS: Thyroid Stimulating Hormone < 0.02 uIU/mL (0.465-4.68)
== END ==
PROVIDERS: Visit Provider Nurse Practitioner Family
DX: E03.9 Hypothyroidism, unspecified (principal); E78.00 Pure hypercholesterolemia, unspecified; Z72.0 Tobacco use
CPT/HCPCS: 36415; 80053; 80061; 84439; 84443; 85025

== ENCOUNTER → 2021-06-24 10:49 | Outpatient (CLI) | payer MEDICARE, OTHER, SELFPAY | PROVIDERS: Visit Provider Nurse Practitioner | DX: Z20.822 Contact with and (suspected) exposure to COVID-19 (principal) | CPT/HCPCS: C9803; U0003; U0005 ==

== ENCOUNTER → 2021-07-11 11:28 | Outpatient (CLI) | payer MEDICARE, OTHER, SELFPAY | PROVIDERS: PCP Nurse Practitioner Family; Visit Provider Ophthalmology | DX: Z01.812 Encounter for preprocedural laboratory examination (principal); Z11.52 Encounter for screening for COVID-19 | CPT/HCPCS: C9803; U0003; U0005 ==

== ENCOUNTER 2021-07-14 06:05 | Day surgery (SDC) | payer MEDICARE, OTHER, SELFPAY ==
[2021-07-13 08:36] VITALS: BMI 25.2
[2021-07-14] VITALS (7 sets, daily range): BP systolic 120–146; BP diastolic 64–85; PULSE 5–66; RESP 16–18; TEMP 36.3–36.7; O2SAT 97–100
== END 2021-07-14 08:20 | disposition home or self-care (01) ==
LOC: OR 06:07
PROVIDERS: PCP Nurse Practitioner Family; Visit Provider Ophthalmology
DX: H25.813 Combined forms of age-related cataract, bilateral (principal); H53.149 Visual discomfort, unspecified; H02.831 Dermatochalasis of right upper eyelid; H02.834 Dermatochalasis of left upper eyelid; E78.5 Hyperlipidemia, unspecified; M19.90 Unspecified osteoarthritis, unspecified site; E03.9 Hypothyroidism, unspecified; Z79.899 Other long term (current) drug therapy; Z80.9 Family history of malignant neoplasm, unspecified
CPT/HCPCS: 66984; V2632

== ENCOUNTER → 2021-07-25 09:44 | Outpatient (CLI) | payer MEDICARE, OTHER, SELFPAY | PROVIDERS: Visit Provider Ophthalmology | DX: Z01.812 Encounter for preprocedural laboratory examination (principal); Z11.52 Encounter for screening for COVID-19 | CPT/HCPCS: C9803; U0003; U0005 ==

== ENCOUNTER 2021-07-28 06:15 | Day surgery (SDC) | payer MEDICARE, OTHER, SELFPAY ==
[2021-07-22 10:13] VITALS: BMI 25.2
[2021-07-28] VITALS (7 sets, daily range): BP systolic 131–149; BP diastolic 75–90; PULSE 53–78; RESP 16–20; TEMP 36.6–37.1; O2SAT 94–100
== END 2021-07-28 09:30 | disposition home or self-care (01) ==
PROVIDERS: PCP Nurse Practitioner Family; Visit Provider Ophthalmology
DX: H25.813 Combined forms of age-related cataract, bilateral (principal); H02.831 Dermatochalasis of right upper eyelid; H02.834 Dermatochalasis of left upper eyelid; M19.90 Unspecified osteoarthritis, unspecified site; E03.9 Hypothyroidism, unspecified; Z72.0 Tobacco use; Z80.9 Family history of malignant neoplasm, unspecified
CPT/HCPCS: 66984; V2632

== ENCOUNTER 2021-08-30 11:14 | Emergency (ER) | payer MEDICARE, OTHER, SELFPAY ==
[2021-08-30 11:58] VITALS: BP 148/74; PULSE 91; RESP 16; TEMP 37.1; O2SAT 97; BMI 25.2
--- NOTE | 2021-08-30 12:10 | HMH.EDUTC ---
[facility] [place] Disposition Clinical Impression: Acute bronchitis Qualifiers: Bronchitis organism: unspecified organism Qualified Code(s): J20.9 - Acute bronchitis, unspecified Disposition: Home, Self-Care Condition on Discharge: Good Instructions: Acute Bronchitis, DI for Acute Bronchitis Additional Instructions: Drink plenty of fluids. Take tylenol or ibuprofen for pain or fever. Take the medications as directed. Follow up with your regular doctor. GO TO THE ER FOR ANY WORSENING SYMPTOMS Don't start the oral steroids until tomorrow, since you had the shot here today. Prescriptions: Benzonatate [Benzonatate 100mg cap] 100 mg PO TIDP PRN #30 cap PRN Reason: Cough Transmission Status: Received by [facility] methylPREDNISolone [Medrol] 4 mg PO DIRECTED 6 Days #21 packet Transmission Status: Received by [facility] guaiFENesin [Mucinex 600mg tablet] 1 - 2 tab PO BIDP PRN #30 tab PRN Reason: Congestion Transmission Status: Received by [facility] Azithromycin [Z-Olman 250mg Tab*] 250 mg PO UD DOSE PK #6 tab Transmission Status: Received by [facility] Referrals: Kasandra Martin APRN [Primary Care Provider] - Time of Disposition: 12:43 Medical Decision Making - Medical Records Medical records reviewed: No: I reviewed the patient's medical records. - Tony Inquiry Pt receiving controlled substance: No Vital Signs: 08/30/21 11:58 08/30/21 13:08 Temperature 98.7 F 98.7 F Temperature Source Oral Pulse Rate 91 H Pulse Rate [Left] 91 H Respiratory Rate 16 16 Blood Pressure 148/74 H Blood Pressure [Right Arm] 148/74 H Blood Pressure Mean [Right Arm] 98 02 Sat by Pulse Oximetry 97 Orders (Tests/Meds): ED MEDICATIONS Discontinued Medications Generic Name Dose Route Start Last Admin Trade Name Freq PRN Reason Stop Dose Admin Ceftriaxone Sodium 1 gm 08/30/21 12:16 08/30/21 12:28 Ceftriaxone 1gm Vial IM 08/30/21 12:17 1 gm ONCE ONE Administration Lidocaine HCl 0 ml 08/30/21 12:16 08/30/21 12:28 Lidocaine 1% 5ml Pf Vial IM 08/30/21 12:17 2 ml ONCE ONE Administration Methylprednisolone Sodium Succinate 125 mg 08/30/21 12:16 08/30/21 12:28 Methylprednisolone Sod Succ 125mg Vial IM 08/30/21 12:17 125 mg ONCE ONE Administration [facility] [place] HPI - General Stated complaint: cough, sneezing, sore throat Time Seen by Provider: 08/30/21 12:10 Mode of Arrival: Ambulatory Source of Information: Patient Limitations: No Limitations Description of Symptoms (Recalled from Triage Doc. by RN): pt c/o a cough x3 days. HEENT Symptoms (Recalled from RN notes): No Resp Symptoms (Recalled from RN notes): Yes Skin Symptoms (Recalled from RN notes): No MS Symptoms (Recalled from RN notes): No Functional Status (Recalled from RN notes): wnl - History of Present Illness Provider Complaint: She states that for the past 4 days she has had a worsening cough, chest congestion, sinus congestion and she has felt bad. - Related Data Home Medications Medication Instructions Recorded Confirmed Levothyroxine Sodium 100 mg PO DAILY 06/13/17 07/28/21 [Levothyroxine 100mcg (0.1MG) Tab] Atorvastatin Calcium [Lipitor 20mg 20 mg PO HS 07/13/21 07/28/21 Tablet*] Previous Rx's Medication Instructions Recorded Azithromycin [Z-Olman 250mg Tab*] 250 mg PO UD DOSE PK #6 tab 08/30/21 Benzonatate [Benzonatate 100mg 100 mg PO TIDP PRN #30 cap 08/30/21 cap] guaiFENesin [Mucinex 600mg tablet] 1 - 2 tab PO BIDP PRN #30 tab 08/30/21 methylPREDNISolone [Medrol] 4 mg PO DIRECTED 6 Days #21 08/30/21 packet Allergies Allergy/AdvReac Type Severity Reaction Status Date / Time No Known Allergies Allergy Verified 07/14/21 06:17 - Worker's Comp Is this a Worker's Comp case?: No [facility] History - Hepatitis A Screen Drug use history?: No High risk sexual behaviors?: No History of sexually transmitted infection?: No Current
[2021-08-30 13:08] VITALS: BP 148/74; PULSE 91; RESP 16; TEMP 37.1
== END 2021-08-30 13:09 | disposition home or self-care (01) ==
PROVIDERS: Emergency Provider Nurse Practitioner Family; PCP Nurse Practitioner Family
DX: J20.9 Acute bronchitis, unspecified (principal); E78.5 Hyperlipidemia, unspecified; F17.210 Nicotine dependence, cigarettes, uncomplicated
CPT/HCPCS: 96372; 99213; G0463; J0696

== ENCOUNTER 2021-11-11 09:55 | Emergency (ER) | payer MEDICARE, OTHER, SELFPAY ==
[2021-11-11 10:13] VITALS: BP 158/92; PULSE 78; RESP 17; TEMP 36.8; O2SAT 95; BMI 25.4
--- NOTE | 2021-11-11 10:20 | HMH.EDUTC ---
[facility] [place] Disposition Clinical Impression: Bronchitis, COVID-19 Disposition: Home, Self-Care Condition on Discharge: Good Instructions: DI for COVID-19 (Suspected or Confirmed ), Preventing the Spread of Coronavirus Discharge Instructions Additional Instructions: Drink plenty of fluids. Take tylenol or ibuprofen for pain or fever. Take the medications as directed. Follow up with your regular doctor. GO TO THE ER FOR ANY WORSENING SYMPTOMS Quarantine until you know the results of your covid-19 test. Notify your school or workplace of your results and follow their instructions regarding return to work/school. Prescriptions: Benzonatate [Benzonatate 100mg cap] 100 mg PO TIDP PRN #30 cap PRN Reason: Cough Transmission Status: Received by [facility] methylPREDNISolone [Medrol] 4 mg PO DIRECTED 6 Days #21 packet Transmission Status: Received by [facility] Azithromycin [Z-Olman 250mg Tab*] 250 mg PO UD DOSE PK #6 tab Transmission Status: Received by [facility] Referrals: Kasandra Martin APRN [Primary Care Provider] - Time of Disposition: 10:24 Medical Decision Making - Medical Records Medical records reviewed: No: I reviewed the patient's medical records. - Tony Inquiry Pt receiving controlled substance: No Vital Signs: 11/11/21 10:13 11/11/21 10:26 Temperature 98.3 F 98.3 F Temperature Source Oral Pulse Rate 78 Pulse Rate [Left Radial] 78 Respiratory Rate 17 17 Blood Pressure 158/92 H Blood Pressure [Right Arm] 158/92 H Blood Pressure Mean [Right Arm] 114 02 Sat by Pulse Oximetry 95 [facility] [place] HPI - General Stated complaint: at home pos covid test 11/11, cough, congestion Time Seen by Provider: 11/11/21 10:20 Description of Symptoms (Recalled from Triage Doc. by RN): patient comes in today for a postive at home covid test. she took the test this am. patient complains of runny nose and cough. HEENT Symptoms (Recalled from RN notes): No Resp Symptoms (Recalled from RN notes): Yes Skin Symptoms (Recalled from RN notes): No MS Symptoms (Recalled from RN notes): No Functional Status (Recalled from RN notes): wnl - History of Present Illness Provider Complaint: She states that she has had a dry cough and a very runny nose for the past 2 days so she took a home covid test this morning and the result was positive. She denies any fever/chills, shortness of breath, and chest pain. She has been fully vaccinated for covid-19 and she has had 1 booster. - Related Data Home Medications Medication Instructions Recorded Confirmed Levothyroxine Sodium 100 mg PO DAILY 06/13/17 11/11/21 [Levothyroxine 100mcg (0.1MG) Tab] Atorvastatin Calcium [Lipitor 20mg 20 mg PO HS 07/13/21 11/11/21 Tablet*] Previous Rx's Medication Instructions Recorded Azithromycin [Z-Olman 250mg Tab*] 250 mg PO UD DOSE PK #6 tab 08/30/21 Benzonatate [Benzonatate 100mg 100 mg PO TIDP PRN #30 cap 08/30/21 cap] guaiFENesin [Mucinex 600mg tablet] 1 - 2 tab PO BIDP PRN #30 tab 08/30/21 methylPREDNISolone [Medrol] 4 mg PO DIRECTED 6 Days #21 08/30/21 packet Azithromycin [Z-Olman 250mg Tab*] 250 mg PO UD DOSE PK #6 tab 11/11/21 Benzonatate [Benzonatate 100mg 100 mg PO TIDP PRN #30 cap 11/11/21 cap] methylPREDNISolone [Medrol] 4 mg PO DIRECTED 6 Days #21 11/11/21 packet Allergies Allergy/AdvReac Type Severity Reaction Status Date / Time No Known Allergies Allergy Verified 11/11/21 10:12 - Worker's Comp Is this a Worker's Comp case?: No [facility] History - Hepatitis A Screen Attestation statement:: This patient has been screened for Hepatitis A risk factors. I have reviewed the patient's past medical history: Yes Medical History: Reports:: Hyperlipidemia Denies:: Cancer, Diabetes Mellitus Type 1, Diabetes Mellitus Type 2, Internal Pacemaker, MRSA, Seizures Laterality Cases: Right: Arthroscopy Knee, Other Other Surgeries: No: Pacemaker Amputation: No
[2021-11-11 10:26] VITALS: BP 158/92; PULSE 78; RESP 17; TEMP 36.8
== END 2021-11-11 10:29 | disposition home or self-care (01) ==
PROVIDERS: Emergency Provider Nurse Practitioner Family; PCP Nurse Practitioner Family
DX: U07.1 COVID-19 (principal); J40 Bronchitis, not specified as acute or chronic
CPT/HCPCS: 99212; C9803; G0463; U0003; U0005

== ENCOUNTER → 2021-11-23 08:32 | Outpatient (CLI) | payer MEDICARE, OTHER, SELFPAY ==
[2021-11-23 08:53] LABS: Basophils # 0.2 K/mm3 (0-0.2); Basophils % 1.8 % (0.1-2.0); Eosinophils # 0.1 K/mm3 (0.0-0.4); Eosinophils % 1.7 % (0.1-12.0); Hematocrit 45.9 % (37.0-47.0); Hemoglobin 15.5 g/dL (12.2-16.2); Lymphocytes # 1.5 K/mm3 (0.7-4.5); Lymphocytes % 18.7 % (10-50); Mean Corpuscular HGB Conc 33.8 g/dL (31.8-35.4); Mean Corpuscular Hemoglobin 33.2 pg (27.0-31.2); Mean Corpuscular Volume 98.3 fl (81-99); Mean Platelet Volume 9.2 fl (7.4-10.4); Monocytes # 0.4 K/mm3 (0.1-1.0); Monocytes % 5.3 % (1.7-9.3); Neutrophils # 5.8 K/mm3 (1.8-7.8); Neutrophils % 72.5 % (37.0-80.0); Platelet Count 314 K/mm3 (142-424); Red Blood Count 4.67 M/mm3 (4.20-5.40); Red Cell Distribution Width 12.8 % (11.5-17.5)
[2021-11-23 09:38] LABS: Alanine Aminotransferase 19 U/L (12-78); Albumin Level 3.8 g/dl (3.5-5.0); Albumin/Globulin Ratio 1.4 (1.1-1.8); Alkaline Phosphatase 122 U/L (38-126); Anion Gap 6.2 mEq/L (5-15); Aspartate Amino Transferase 27 U/L (14-36); Bilirubin,Total 0.9 mg/dl (0.2-1.3); Blood Urea Nitrogen 5 mg/dl (7-17); Carbon Dioxide 30 mmol/L (22.0-30.0); Chloride 104 mmol/L (98-107); Estimated Glomerular Filt Rate 100 ml/min (>60); GFR (African American) 121 ML/MIN (>60); Globulin 2.7 g/dL (1.3-3.2); Glucose 105 mg/dl (74-100); Potassium 4.2 mmoL/L (3.5-5.1); Sodium 136 mmol/L (136-145); Total Protein,Serum 6.5 g/dl (6.3-8.2)
[2021-11-23 09:54] LABS: Free T4 (Free Thyroxine) 1.14 ng/dl (0.78-2.19)
[2021-11-23 10:10] LABS: Thyroid Stimulating Hormone 6.19 uIU/mL (0.465-4.68)
== END ==
PROVIDERS: PCP Nurse Practitioner Family; Visit Provider Nurse Practitioner Family
DX: E03.9 Hypothyroidism, unspecified (principal); R73.01 Impaired fasting glucose; Z72.0 Tobacco use
CPT/HCPCS: 36415; 80053; 84439; 84443; 85025

== ENCOUNTER → 2022-01-15 08:58 | Outpatient (CLI) | payer MEDICARE, OTHER, SELFPAY ==
--- NOTE | 2022-01-15 09:02 | CT_ITS ---
FINAL REPORT CLINICAL HISTORY: PERSOANL HISTORY OF TOBACCO USE, 1 pack per day for 30 years FINDINGS: CTDI vol (mGy): 2.[address] images of the chest were obtained using the low-dose protocol for screening. There is no evidence of mediastinal or hilar mass or adenopathy. No axillary mass or adenopathy is identified. On the lung window images, no dominant mass or suspicious nodule is seen. There are several, less than 5 mmn bilateral pulmonary nodules. 2 mm nodules are seen in both the right and left upper lobes on image number 29 . There is mild pulmonary scarring. IMPRESSION: Bilateral pulmonary nodules measuring less than 5 mm. Lung RADS category 2. Recommend 12 month followup low-dose CT for further evaluation. Reviewed, Interpreted and Dictated by Jay Montgomery III, MD Transcribed by Crystal Colin Authenticated and [facility]
--- NOTE | 2022-01-15 09:03 | XR_ITS ---
FINAL REPORT TECHNIQUE: Bone mineral density was calculated of the lumbar spine and hip. CLINICAL HISTORY: . post menopausal screening FINDINGS: Using L1-4, the bone mineral density of the spine is 1.016 g/cm2, corresponding to T-score of -0.3. Using the left hip, the bone mineral density of the femoral neck is 0.614 g/cm2, corresponding to a T-score of -2.1. Using the right hip, the bone mineral density of the femoral neck is 0.613 g/cm2, corresponding to a T-score of -2.1. NOTE: T-score: Standard deviation compared with peak bone mass of young adult mean. *Following the recommendations of the International Society of Bone densitometry, classification of hip BMD is based on the lower of two T-scores; total hip or femoral neck. IMPRESSION: Diminished bone mineral density of the lumbar spine and left hip consistent with osteopenia. FRAX data shows major osteoporotic fracture of 12% and hip fracture of 3%. Reviewed, Interpreted and Dictated by Jay Montgomery III, MD Transcribed by Rula Tidwell Authenticated and [facility]
--- NOTE | 2022-01-15 09:03 | MM_ITS ---
PROCEDURE INFORMATION: Exam: MG Bilateral Screening 3D Mammography Exam date and time: 01/15/2022 9:01 AM Age: 66 years old Clinical indication: Screening examination TECHNIQUE: Imaging protocol: Bilateral Screening tomosynthesis and 2D mammography including computer-aided detection (CAD) when performed. COMPARISON: 1. MG MM DIG SCREENING MAMM BI W/CAD 01/14/2021 8:23 AM 2. MG MM DIG MAMM DX UNILAT RT CAD 04/23/2020 1:54 PM FINDINGS: MAMMOGRAPHY: Breast composition: The breasts are heterogeneously dense, which may obscure small masses. Mass: None. Architectural distortion: None. Calcifications: No suspicious calcifications. Asymmetric density: None. Skin thickening: None. Axillary adenopathy: None. IMPRESSION: No mammographic evidence of malignancy. Annual screening is recommended unless otherwise clinically indicated. ASSESSMENT: BI-RADS Category 1: Negative
== END ==
PROVIDERS: PCP Nurse Practitioner Family; Visit Provider Internal Medicine Adolescent Medicine
DX: Z87.891 Personal history of nicotine dependence (principal); Z12.2 Encounter for screening for malignant neoplasm of respiratory organs; Z12.31 Encounter for screening mammogram for malignant neoplasm of breast; Z78.0 Asymptomatic menopausal state
CPT/HCPCS: 71271; 77063; 77067; 77080

== ENCOUNTER 2022-12-12 10:29 | Emergency (ER) | payer MEDICARE, OTHER, SELFPAY ==
[2022-12-12 11:05] VITALS: BP 149/99; PULSE 93; RESP 20; TEMP 36.8; O2SAT 97; BMI 24.2
--- NOTE | 2022-12-12 11:53 | EXP.UTC ---
Discharge Plan Disposition Patient Disposition: Home, Self-Care Condition: Good Prescriptions Prescriptions: New benzonatate 100 mg capsule 100 mg PO TID PRN (Reason: cough) Qty: 30 0RF azithromycin [Zithromax Z-Olman] 250 mg tablet See Rx Instructions .ROUTE .COMPLEX 5 Days Qty: 6 0RF Rx Instructions: For 250 mg dose pack: take 500 mg today (day 1), then 250 mg for 4 days (days 2-5) methylprednisolone [Medrol (Olman)] 4 mg tablets,dose pack See Rx Instructions .Route .COMPLEX 6 Days Qty: 21 0RF Rx Instructions: taper pack; No Action atorvastatin 20 mg tablet 20 mg PO DAILY levothyroxine 75 mcg tablet 75 mcg PO DAILY montelukast 10 mg tablet 10 mg PO DAILY Referrals Follow up/Referrals: Kasandra Martin APRN [Primary Care Provider] - See instructions Activity Restrictions/Add. Instructions Additional Instructions/Restrictions: Start antibiotic today. Be sure to complete entire prescription even if feeling better Monitor temp. Tylenol every 4 hours as needed and / or ibuprofen every 6 hours as needed ( As long as your primary care physician has told you that it ok to take both. For fever/aches/pains ER if no less than 101 despite Tylenol or Motrin Humidifier/vaporizer or hot steamy shower *Tessalon Perles will not cause drowsiness but use at bedtime to help stop cough so that you may get some rest. *Start steroid today. Helps with inflammation therefore, cough and wheezing. Follow directions on the package. Reviewed side effects. Patient reports taking them before. Follow up IMMEDIATELY for new or worsening of symptoms OR no noticeable improvement over the next 48-72 hours. 911 immediately for any life threatening symptoms such as chest pain or difficulty breathing Clinical Impressions Clinical Impression: Bronchitis Sinusitis Qualifiers: Sinusitis location: unspecified location Chronicity: unspecified Qualified Code(s): J32.9 - Chronic sinusitis, unspecified Instructions Patient Instructions: DI for Sinusitis, Sinusitis, Acute Bronchitis Discharge ED Provider: Shayla Echavarria [facility] General Stated complaint: Cough head congestion drainage Mode of Arrival: Ambulatory Source of Information: Patient Limitations: No Limitations Time Seen by Provider: 12/12/22 11:54 Description of Symptoms (Recalled from Triage Doc. by RN): PATIENT C/O DRY COUGH X 3 DAYS AND HEAD CONGESTION THAT STARTED YESTERDAY HEENT Symptoms (Recalled from RN notes): Yes Resp Symptoms (Recalled from RN notes): Yes Skin Symptoms (Recalled from RN notes): No MS Symptoms (Recalled from RN notes): No Functional Status (Recalled from RN notes): WNL History of Present Illness Provider Complaint: Patient states that she has been having dry cough and sinus congestion for several days that got worse yesterday and having pain/pressure behind her eyes like she gets with sinus infection States that today she wasnt feeling any better so she came in Related Data Home Medications Medication Instructions Recorded Confirmed atorvastatin 20 mg tablet 20 mg PO DAILY Cholesterol 12/12/22 12/12/22 levothyroxine 75 mcg tablet 75 mcg PO DAILY Supplement 12/12/22 12/12/22 montelukast 10 mg tablet 10 mg PO DAILY Allergy Symptoms 12/12/22 12/12/22 Previous Rx's Medication Instructions Recorded azithromycin 250 mg tablet See Rx Instructions PO .COMPLEX 5 12/12/22 (Zithromax Z-Olman) days #6 tabs benzonatate 100 mg capsule 100 mg PO TID PRN cough #30 caps 12/12/22 methylprednisolone 4 mg tablets in See Rx Instructions .Route 12/12/22 a dose pack (Medrol (Olman)) .COMPLEX 6 days #21 tabs Allergies Allergy/AdvReac Type Severity Reaction Status Date / Time No Known Allergies Allergy Verified 11/11/21 10:12 Worker's Comp Is this a Worker's Comp case?: No [facility] Disclaimer: The information contained in this section may have been updated af
[2022-12-12 12:03] VITALS: BP 149/99; PULSE 93; RESP 20; TEMP 36.8; O2SAT 97
== END 2022-12-12 12:06 | disposition home or self-care (01) ==
PROVIDERS: Emergency Provider Nurse Practitioner; PCP Nurse Practitioner Family
DX: J20.9 Acute bronchitis, unspecified (principal); J01.90 Acute sinusitis, unspecified; F17.210 Nicotine dependence, cigarettes, uncomplicated
CPT/HCPCS: 99212; 99214; G0463

== ENCOUNTER → 2023-03-21 14:38 | Outpatient (CLI) | payer MEDICARE, OTHER, SELFPAY ==
--- NOTE | 2023-03-21 14:44 | MM_ITS ---
PROCEDURE INFORMATION: Exam: MG Bilateral Screening 3D Mammography Exam date and time: 03/21/2023 2:40 PM Age: 67 years old Clinical indication: Screening examination TECHNIQUE: Imaging protocol: Bilateral Screening tomosynthesis and 2D mammography including computer-aided detection (CAD) when performed. COMPARISON: 1. MG MM DIG SCREENING MAMM BI W/CAD 01/15/2022 9:01 AM 2. MG MM DIG SCREENING MAMM BI W/CAD 01/14/2021 8:23 AM FINDINGS: MAMMOGRAPHY: Breast composition: The breasts are heterogeneously dense, which may obscure small masses. Mass: None. Architectural distortion: None. Calcifications: No suspicious calcifications. Asymmetric density: None. Skin thickening: None. Axillary adenopathy: None. IMPRESSION: No mammographic evidence of malignancy. Annual screening is recommended unless otherwise clinically indicated. ASSESSMENT: BI-RADS Category 1: Negative
--- NOTE | 2023-03-21 14:45 | CT_ITS ---
FINAL REPORT CLINICAL HISTORY: H/O TOBACCO USE smoker, 1.5 ppd x 40 years COMPARISON: 01/15/2022, 09/07/2019 FINDINGS: CTDI vol (mGy): 2.90 dlp: 92.[address] images of the chest were obtained using the low-dose protocol for screening. There is no evidence of mediastinal or hilar mass or adenopathy. No axillary mass or adenopathy is identified. On the lung w again seen are several, less than 5 mm bilateral pulmonary nodules. For example in the posterior right upper lobe on image #27 is a 3 mm nodule in the superior segment of the left lower lobe on image 26 is a 3 mm nodule. Both of which are stable. Indow images, no pulmonary mass or suspicious nodule is identified. IMPRESSION: Bilateral pulmonary nodules measuring less than 5 mm, stable from 2020. Lung RADS category 1 . Recommend 12 month followup low-dose CT for further evaluation. Reviewed, Interpreted and Dictated by Jay Montgomery III, MD Transcribed by Crystal Colin Authenticated and [facility]
== END ==
PROVIDERS: PCP Nurse Practitioner Family; Visit Provider Nurse Practitioner Family
DX: Z12.31 Encounter for screening mammogram for malignant neoplasm of breast (principal); Z87.891 Personal history of nicotine dependence
CPT/HCPCS: 71271; 77063; 77067

== ENCOUNTER 2023-10-10 16:15 | Outpatient (CLI) | payer MEDICARE, SELFPAY ==
--- NOTE | 2023-10-10 16:20 | XR_ITS ---
FINAL REPORT CLINICAL HISTORY: acute bronchitis, unspecified organism COMPARISON: Ship Scaler 03/21/2023 FINDINGS: Two views of the chest were obtained. The heart size and pulmonary vascularity are within normal limits. The mediastinum is normal. No acute pulmonary abnormality is identified. There is no pneumothorax. The bony thorax is intact. IMPRESSION: No active cardiopulmonary disease. Reviewed, Interpreted and Dictated by Jay Montgomery III, MD Transcribed by Carrie Caruso Authenticated and [facility]
== END 2023-10-10 23:59 | disposition home or self-care (01) ==
LOC: RAD 16:17
PROVIDERS: PCP Nurse Practitioner Family; Visit Provider Physician Assistant
DX: J02.9 Acute pharyngitis, unspecified (principal)
CPT/HCPCS: 71046

== ENCOUNTER 2024-03-30 16:41 | Outpatient (CLI) | payer MEDICARE, SELFPAY ==
--- NOTE | 2024-03-30 16:43 | MM_ITS ---
PROCEDURE INFORMATION: Exam: MG Bilateral Screening 3D Mammography Exam date and time: 03/30/2024 4:27 PM Age: 68 years old Clinical indication: Screening examination. Two maternal aunts had breast cancer. TECHNIQUE: Imaging protocol: Bilateral Screening tomosynthesis and 2D mammography including computer-aided detection (CAD) when performed. COMPARISON: 1. MG MM DIG SCREENING MAMM BI W/CAD 03/21/2023 2:40 PM 2. MG MM DIG SCREENING MAMM BI W/CAD 01/15/2022 9:01 AM 3. MG MM DIG SCREENING MAMM BI W/CAD 01/14/2021 8:23 AM 4. MG MM DIG MAMM DX UNILAT RT CAD 04/23/2020 1:54 PM FINDINGS: MAMMOGRAPHY: Breast composition: The breasts are heterogeneously dense, which may obscure small masses. Mass: None. Architectural distortion: None. Calcifications: No suspicious calcifications. Asymmetric density: None. Skin thickening: None. Axillary adenopathy: None. IMPRESSION: No mammographic evidence of malignancy. Annual screening is recommended unless otherwise clinically indicated. ASSESSMENT: BI-RADS Category 1: Negative.
== END 2024-03-30 23:59 | disposition home or self-care (01) ==
LOC: RAD 16:41
PROVIDERS: PCP Nurse Practitioner Family; Visit Provider Nurse Practitioner Family
DX: Z12.31 Encounter for screening mammogram for malignant neoplasm of breast (principal)
CPT/HCPCS: 77063; 77067

== ENCOUNTER 2024-06-25 09:24 | Outpatient (CLI) | payer MEDICARE, SELFPAY ==
--- NOTE | 2024-06-25 09:28 | XR_ITS ---
FINAL REPORT TECHNIQUE: Right elbow 3 views CLINICAL HISTORY: RIGHT ELBOW PAIN WITH PAIN GOING UP INTO SHOULDER COMPARISON: None FINDINGS: RIGHT ELBOW: 3 images of the right elbow were obtained. There is no evidence of fracture or dislocation. 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 There is a 6 mm well-corticated density adjacent to the lateral epicondyle. There is no soft tissue abnormality identified. IMPRESSION: Moderate degenerative changes as described, without acute bony abnormality. Reviewed, Interpreted and Dictated by Ramesh Anderson MD Transcribed by Amelia Weems Authenticated and [facility]
--- NOTE | 2024-06-25 09:28 | XR_ITS ---
FINAL REPORT CLINICAL HISTORY: RIGHT SHOULDER PAIN COMPARISON: None FINDINGS: RIGHT SHOULDER Three views demonstrate no acute fracture or dislocation. The visualized joint spaces are normally aligned. There is mild hypertrophic change of the inferior margin of the glenohumeral joint. The soft tissues are unremarkable. IMPRESSION: Mild hypertrophic change of the inferior margin of the glenohumeral joint, without acute bony abnormality. Reviewed, Interpreted and Dictated by Ramesh Anderson MD Transcribed by Amelia Weems Authenticated and [facility]
== END 2024-06-25 23:59 | disposition home or self-care (01) ==
LOC: RAD 09:25
PROVIDERS: PCP Nurse Practitioner Family; Visit Provider Nurse Practitioner Family
DX: M25.521 Pain in right elbow (principal); M25.511 Pain in right shoulder
CPT/HCPCS: 73030; 73080

== ENCOUNTER 2024-07-04 10:42 | Outpatient (RCR) | payer MEDICARE, SELFPAY ==
--- NOTE | 2024-07-04 11:28 | HMH.OTOPEV ---
OT Inpatient Evaluation Rehab OT Outpatient Eval Start: 07/04/24 11:17 Freq: Status: Active Protocol: Document 07/04/24 11:17 RMVIC (Rec: 07/04/24 11:28 [facility] [id number]) E-signed By Melvin Wells, OT Outpatient Therapy Subjective History Subjective History Pt is a 69 year old female who reports to therapy for initial evaluation to right elbow and shoulder. Pt reports she has been having R shoulder and R elbow pain for a good while . She does not recall any specific type of injury causing her pain to begin. Pt also complains of intermittent swelling at right elbow laterally. Pt recently had x-rays completed at right shoulder and elbow showing arthritic changes. Pt does demonstrate with a slight decline in AROM and strength at both joints. Pt will continue to be seen in order to address all deficits. STG R shoulder AROM Flex: 140 degrees Abd: 150 degrees LTG R shoulder AROM Flex: 150 degrees Abd: 160 degrees STG R elbow AROM Ext: -5 degrees Sup: 80 degrees LTG R elbow AROM Ext: 0 degrees Sup: 85 degrees New diagnosis of cancer in past 12 No months? Chief Complaint Pain,Stiff,Swelling,Weakness Symptom Type Ache,Throb,Dull Symptoms Relieved By Rest/Positioning,Heat Symptoms Aggravated By Physical Activity,Lifting Prior Functional Limitations None Current Functional Limitations Reaching,Lifting,Housework, Driving,Sleeping Symptom Description Intermittent,Activity Dependent Level of pain today (0-10) 2 Pain scale - at its best (0-10) 0 Pain scale - at its worst (0-10) 8 Shoulder/Elbow Eval Shoulder Objective Measurements Shoulder ROM Right Shoulder Abduction Active Range of 140 degrees Motion (degrees) Shoulder Flexion Active Range of Motion 125 degrees (degrees) Query Text: Shoulder External Rotation Active Range 90 degrees of Motion (degrees) Shoulder Internal Rotation Active Range 70 degrees of Motion (degrees) Shoulder MMT Shoulder Abduction Strength Grade 3+ Fair+ Shoulder Flexion Strength Grade 3+ Fair+ Shoulder External Rotation Strength 3+ Fair+ Grade Shoulder Internal Rotation Strength 3+ Fair+ Grade Shoulder Strength Patient Testing Sitting Position Elbow Objective Measurements Elbow ROM Right Elbow Extension Active Range of Motion ( -10 degrees degrees) Elbow Flexion Active Range of Motion ( 135 degrees degrees) Elbow Pronation of Forearm Range of 90 degrees Motion (degrees) Elbow Supination of Forearm Range of 75 degrees Motion (degrees) Elbow MMT Elbow Flexion Strength Grade 3+ Fair+ Elbow Extension Strength Grade 3+ Fair+ Supination Strength Grade 3+ Fair+ Pronation Strength Grade 3+ Fair+ QuickDASH Activities Please rate your ability to do the following activities in the last week by selecting the number below the appropriate response. 1. Open a tight or new jar. Mild difficulty 2. Do heavy collection technician (e.g., wash No difficulty broderick, floors). 3. Carry a shopping bag or briefcase. No difficulty 4. Wash your back. Mild difficulty 5. Use a knife to cut food. No difficulty 6. Recreational activities in which you No difficulty take some force or impact through your arm, shoulder, or hand (e.g., golf, hammering, tennis, etc.). 7. During the past week, to what extent Slightly has your arm, shoulder or hand problem interfered with your normal social activities with family, friends, neighbors or groups? 8. During the past week, were you Not limited at all limited in your work or other regular daily activites as a result of your arm, shoulder or hand problem? 9. Arm, shoulder or hand pain. Mild 10. Tingling (pins and needles) in your None arm, shoulder or hand. 11. During the past week, how much Mild difficulty difficulty have you had sleeping because of the pain in your arm, shoulder or hand? Quick DASH 16 OT Outpatient Assessment Impairments Problems/Impairments Palpation Tenderness,Impaired Range of Motion,Impaired Strength,Impaired Endurance, Impaired Lifting,Impaired Shower/Bathing,Impaired Household Care,Subjective C/O Pain Prognosis Rehab Potential Good Clinical Impression Consistent with Diagnosis Yes Short Term Goals Number of Weeks 3 Increase Range of Motion Yes: See history Increase Strength Yes: 4-/5 throughout right elbow and shoulder Increase Endurance Yes: Pt will tolerate R UE exercises for ~20 minutes prior to rest. Decrease Subjective C/O Pain Yes: 6/10 at worst Patient to be Ind w/ HEP Yes: AAROM/AROM exercises at R shoulder/elbow Improve Quick Dash Score Yes: Activities: 15 or below Physician Recruiter Goals Number of Weeks 6 Increase Range of Motion Yes: See history Increase Strength Yes: 4/5 throughout R elbow and shoulder Increase Endurance Yes: Pt will tolerate R UE exercises for ~30 minutes prior to rest. Decrease Subjective C/O Pain Yes: 3/10 at worst Patient to be Ind w/ Advanced HEP Yes: Advanced strengthening exercises Improve Quick Dash Score Yes: Activities: 10 or below Outpatient Therapy Plan of Care Treatment Plan May Include Therapeutic Exercise Including Home Yes Exercise Program Manual Therapy Techniques Yes Neuromuscular Re-education Yes Therapeutic Activities to Return to Yes Previous Functional/Work Level Thermal Modalities Yes Electrical Stimulation Yes Ultrasound/Phonophoresis Yes Iontophoresis Yes Orthotics/Bracing/Splinting Yes Massage Yes Eval/Re-Eval Yes Frequency Times per week 2 Duration Number of Weeks 6 Addendums This patient is a candidate for social No or vocational rehab? Patient/Guardian verbally acknowledges Yes understanding of treatment program and consents to further treatment? Patient/Guardian verbally acknowledges Yes understanding of diagnosis, prognosis and goals for treatment? Eval Complexity OT Charge 65384 - Moderate Complexity PHYSICIAN CERTIFICATION: I certify the specified therapy services for Lena Kwok are required, authorized, and reviewed every 30 days.
== END 2024-07-04 23:59 | disposition home or self-care (01) ==
LOC: OT 10:42
PROVIDERS: Visit Provider Physician Assistant
DX: M25.511 Pain in right shoulder (principal); M25.521 Pain in right elbow
CPT/HCPCS: 97166

== ENCOUNTER 2024-07-12 08:49 | Outpatient (CLI) | payer MEDICARE, SELFPAY ==
--- NOTE | 2024-07-12 08:53 | CT_ITS ---
FINAL REPORT TECHNIQUE: Thin section axial images were obtained from the lung apices to the upper abdomen by computed tomography. Reformatted images were obtained and reviewed. This study was performed with techniques to keep radiation doses al low as reasonably achievable (ALARA). Individualized dose reduction techniques using automated exposure control or adjustment of mA and/or kV according to the patient's size were employed. CLINICAL HISTORY: SCREENING CURRENT SMOKER , 1 PPD X 48 YEARS COMPARISON: 03/21/2023 FINDINGS: CHEST CT LOW DOSE 69-year-old female, current smoker, 74-ebra-axaj history CTDI vol (mGy): 2.9 DLP (mGy-cm): 109.16 There is no axillary adenopathy. There is no mediastinal or hilar mass or adenopathy. The heart is normal in size. There is no pericardial or pleural effusion. Lung window images demonstrate a posterior right upper lobe 3 mm nodule, best seen on image #33 of series 4, stable. There is a 3 mm nodule in the superior segment of the left lower lobe, best seen on image #33 of series 4, stable. There is a medial right upper lobe 4 mm nodule, best seen on image #26 of series 4, also stable. These nodules have been stable since 2020. Limited images of the upper abdomen demonstrate calcified granulomas in the spleen. IMPRESSION: Lung-RADS category 1. Recommend 12 month follow up low dose chest CT. Reviewed, Interpreted and Dictated by Ramesh Anderson MD Transcribed by Amelia Weems Authenticated and [facility]
--- NOTE | 2024-07-12 09:09 | XR_ITS ---
FINAL REPORT TECHNIQUE: Bone densitometry calculations of the lumbar spine and left hip were obtained. CLINICAL HISTORY: SCREENING COMPARISON: 01/15/2022 FINDINGS: Using L1-4, the bone mineral density of the spine is 1.001 g/cm2, corresponding to T-score of -0.4. Using the left hip, the bone mineral density of the femoral neck is 0.611 g/cm2, corresponding to a T-score of -2.1. Using the right hip, the bone mineral density of the femoral neck is 0.608 g/cm?, corresponding to a T-score of -2.2. NOTE: T-score: Standard deviation compared with peak bone mass of young adult mean. *Following the recommendations of the International Society of Bone densitometry, classification of hip BMD is based on the lower of two T-scores; total hip or femoral neck. IMPRESSION: Diminished bone mineral density of the bilateral hips consistent with osteopenia. Normal bone mineral density of the lumbar spine. Reviewed, Interpreted and Dictated by Ramesh Anderson MD Transcribed by Amelia Weems Authenticated and [facility]
== END 2024-07-12 23:59 | disposition home or self-care (01) ==
LOC: RAD 08:50
PROVIDERS: PCP Nurse Practitioner Family; Visit Provider Nurse Practitioner Family
DX: Z78.0 Asymptomatic menopausal state (principal); Z87.891 Personal history of nicotine dependence
CPT/HCPCS: 71271; 77080

== ENCOUNTER 2024-07-30 08:00 | Outpatient (RCR) | payer MEDICARE, SELFPAY | END 2024-07-30 23:59 | disposition home or self-care (01) | LOC: OT 08:00 | PROVIDERS: Visit Provider Physician Assistant | DX: M25.511 Pain in right shoulder (principal); M25.521 Pain in right elbow | CPT/HCPCS: 97014; 97110; 97140; G0283 ==

== ENCOUNTER 2024-12-25 08:32 | Outpatient (CLI) | payer MEDICARE, SELFPAY ==
--- OUTSIDE RECORDS SUMMARY | 2024-09-08 17:30 | XMS_ITS ---
Author Organization [facility] Address [address] [place] [address] Care Team Providers Care Manager Federal Name Role Phone Can Isaacs Primary Care Provider Kasandra Martin Unavailable [phone] Can Isaacs Unavailable Unavailable Migration, Provider Unavailable Unavailable [facility] Encounter Medications Medication SIG (Take, Route, Frequency, Duration) Notes Start Date End Date Status Euthyrox 75 MCG (0.075 MG) 1 TAB(S) ORALLY ONCE A DAY; Duration: 90 DAYS *Please review and pick correct strength-formulati on from [facility] options. If intended option is not [...] Active Encounters Encounter Location Date Provider Diagnosis [facility] [address] [facility] [address] [facility] [address] [place] [address] 09/08/2024 Provider Migration Plan Of Treatment Medication [...] 06/27/2025 08:00:00 AM, [address] [facility], [address], [place], [address], Progress Notes * David YANB:1955 (69 yo F)Acc No.[id number]:09/08/2024 Patient: Lena NEWMAN Provider: Jagjit quevedo Migration :1955 A ge:69 Y S ex:Female Date:09/08/2024 Address:[facility] [address] , [place], [id number] Pcp:Can Isaacs Subjective: * Chief Complaints: * [facility] . [facility]. * Medical History: * [...] *Please review and pick correct strength-formulation from [employer] options. If intended option is not shown, [...] *Please review and pick correct strength-formulation from [employer] options. If intended option is not shown, discontinue and re-order from Quick Search* Objective: * Vitals: Assessment: Plan: * Treatment: * * Electronic signature of Digna rogel Migration on 12/25/2024 at 08:41 AM EDT Sign off status: Pending * Provider: Jagjit quevedo Migration Date: 09/08/2024 Generated for Stiven montilla/Cj/Laci on: 12/25/2024 08:41 AM EDT
--- OUTSIDE RECORDS SUMMARY | 2024-12-25 04:00 | XMS_ITS ---
Author Organization [facility] D [place] Address [address] [place] [address] Care Team Providers Care Chaplaincy Name Role Phone Can Isaacs Primary Care Provider Kasandra Martin Unavailable [phone] Can Isaacs Unavailable Unavailable Allergies No Known Allergies Reason For Referral Reason Dr [facility] for screen ing colonoscopy Referral Organization [facility] Referring Provider First Name Kasandra Referring Provider Last Name Veronica Referring Provider Speciality Family Pra ctice Referral Priority Routine REASON FOR VISIT 6 month check up Medications Medication SIG (Take, Route, Frequency, Duration) Notes Start Date End Date Status Atorvastatin Calcium 20 MG 1 tab(s) orally once a day; Duration: 90 days Active Montelukast Sodium 10 MG 1 tab(s) orally once a day; Duration: 90 days Active Euthyrox 75 MCG (0.075 MG) 1 TAB(S) ORALLY ONCE A DAY; Duration: 90 DAYS *Please review and pick correct strength-formulati on from [employer] options. If intended option is not shown, discontinue and re-order from Quick Search* Active Levocetirizine Dihydrochloride 5 MG 1 tab(s) orally once a day (in the evening) as needed for allergies; Duration: 30 days 03/07/2023 Active ALBUTEROL (EQV-PROVENTIL HFA) 90 MCG/INH 2 PUFF(S) INHALED EVERY 6 HOURS; Duration: 30 DAYS *Please review for potential replacement for e-prescription and drug interaction check* 10/10/2023 Active Alendronate Sodium 35 MG 1 tab(s) orally once a week; Duration: 84 days 07/13/2024 Active Co Q 10 100 MG 1 cap(s) orally once a day Active Vitamin D3 50 MCG 1 TAB(S) ORALLY ONCE A DAY *Please review and pick correct strength-formulati on from [employer] options. If intended option is not shown, discontinue and re-order from Quick Search* Active Calcium 600 + D 600 MG-5 MCG 1 TAB(S) ORALLY ONCE DAILY *Please review and pick correct strength-formulati on from [employer] options. If intended option is not shown, discontinue and re-order from Quick Search* Active Social History Tobacco Use: Social History Observation Description Date Details (start date - stop date) Current Smoker NA - NA Smoking: Question Answer Notes Are you a: current smoker How often do you smoke cigarettes? every day How many cigarettes a day do you smoke? - Vital Signs Temperature 97.7 degrees Fahrenheit 12/26/19 25 Blood pressure systolic 120 mm Hg 12/26/19 25 Blood pressure diastolic 72 mm Hg 025 Heart Rate 72 /min 12/25/2024 Height 61.25 in 12/25/2024 Weight 129 lbs 12/25/2024 BMI 24.17 kg/m2 12/25/2024 Encounters Encounter Location Date Provider Diagnosis [facility] [place] [address] [facility] [address] [place] [address] 12/25/2024 Kasandra Martin Hypothyroidism, unsp ecified type E03.9 ; Pure hypercholesterolemia E78.00 ; Vitamin D deficiency E55.9 ; Seasonal allergies J30.2 ; Tobacco use Z72.0 ; Arthralgia of multiple sites M25.50 and Osteopenia of multiple sites M85.89 Assessments Encounter Date Diagnosis (ICD Code) Assessment Notes Treatment Notes Treatment Clinical Notes Section Notes 12/25/2024 Hypothyroidism, unspecified type (ICD-10 - E03.9) Continue oral replacement, monitoring labs today as noted 12/25/2024 Pure hypercholesterolemia (ICD-10 - E78.00) continue statin therapy, FLP today, goal LDL < 100 12/25/2024 Vitamin D deficiency (ICD-10 - E55.9) Continue oral replacement 12/25/2024 Seasonal allergies (ICD-10 - J30.2) continue singulair and xyzal 12/25/2024 Tobacco use (ICD-10 - Z72.0) encouraged cessation, not ready 12/25/2024 Arthralgia of multip le sites (ICD-10 - M25.50) Improved overall 12/25/2024 Osteopenia of multip le sites (ICD-10 - M85.89) tolerating fosamax, repeat DEXA 2026 Plan Of Treatment Medication Medication Name Sig Start Date Stop Date Notes Alendronate Sodium 35 MG 1 tab(s) orally once a week; Duration: 84 days 07/13/2024 Treatment Notes Assessment Notes Hypothyroidism, unspecified type Continu e oral replacement, monitoring labs today as noted Pure hypercholesterolemia continue stati n therapy, FLP today, goal LDL < 100 Vitamin D deficiency Continue oral repla cement Seasonal allergies continue singulair a nd xyzal Tobacco use encouraged cessation , not ready Pending Test Test Name Order Date LIPID PANEL, STANDARD (7600) 12/25/2024 COMPREHENSIVE METABOLIC PANEL (40693) TSH W/REFLEX TO FT4 (62807) 12/25/2024 Referrals Referral Date Details 12/25/2024 12/25/2024, Dr Leah qiu for screening colonoscopy Next Appt Details Follow Up: 6 Months, Reason: Provider Name:Kasandra Mcdonald ce, 06/27/2025 08:00:00 AM, [address], [address], [place], [address], Progress Notes * David YANB:1955 (69 yo F)Acc No.[id number]:12/25/2024 Progress Notes Patient: Hoytesa Provider: DARCY Bajwa :1955 A ge:69 Y S ex:Female Date:12/25/2024 Address:[facility] [address], [id number] Pcp:Can Isaacs Subjective: * Chief Complaints: * 1 . 6 month check up. * HPI: g en: 69-year-old female presents today for routine followup regarding hyperlipidemia and hypothyroidism. With respect to chronic disease she reports that she's been relatively well since her last visit. Her most recent DEXA indicated worsening osteopenia so we added weekly alendronate 35mg and she is tolerating well, needs refill Smoking about 1 ppd, denies any cough, hemoptysis, shortness of breath or unintentional weight loss. Appetite has been good. No interest in quitting at this time. most recent screening mamm and CT chest both normal Her right shoulder and elbow pain are resolved. * ROS: A LLERGY: Runny nose y es. F UNCTIONAL STATUS: ADLS I ndependent for all ADL/IADL. R ESPIRATORY: Reviewed, No Symptoms Reported: Y es. C ARDIOLOGY: Reviewed, No Symptoms Reported: Y es. C ONSTITUTIONAL: Reviewed, No Symptoms Reported: Y es. D ERMATOLOGY: no R kun. E NDOCRINOLOGY: Reviewed, No Symptoms Reported: Y es. E NT: Reviewed, No Symptoms Reported: Y es. G ASTROENTEROLOGY: Reviewed, No Symptoms Reported: Y es. M USCULOSKELETAL: Reviewed, No Symptoms Reported: Y es. N EUROLOGY: Reviewed, No Symptoms Reported: Y es. P SYCHOLOGY: Reviewed, No Symptoms Reported: Y es. U ROLOGY: Reviewed, No Symptoms Reported: Y es. 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 * Surgical History: T ubal ligation 1985, Cleft palate repair 1959, Right knee-meniscal tear repair 1998, colonoscopy 2002, Mole removed from right cheek , Colonoscopy 2015, Right breast biopsy 10/2019, cataract removal 07/2021. * Hospitalization/Major Diagno stic Procedure: D enies Past Hospitalization. * Family History: F ather: , stroke, heart disease, cleft palate, club foot (gordons syndrome), Afib.?Mother: alive, diabetes carpal tunnel,. P aternal Grand Father: unknown. P aternal Grand Mother: unknown. M aternal Grand Father: , HTN, diabetic. M aternal Grand Mother: . P aternal uncle: unknown. P aternal aunt: unknown. M aternal uncle: alive, cancer, diabetes, HTN. M atezakl aunt: alive, breast cancer, CVA. S iblings: alive, MS, varicose veins. Alysa uriarte: alive, hypothyroid, club foot. 2 sister(s) . 1 son(s) , 2 daughter(s) . .? * Social History: S moking A re you a: c urrent smoker, H ow often do you smoke cigarettes? e very day, H ow many cigarettes a day do you smoke? 1 -20. R ecreational drug use: no. Exercise: yes. Home smoke detector use: yes. Caffeine: yes, frequency:tea daily. Living Will: No. Alcohol: no. Sexually active: no. Travel outside [place]: no. Occupation: retired from [employer]. * Medications: T aking Co Q 10 100 MG Capsule 1 cap(s) orally once a day , Taking Vitamin D3 50 MCG TABLET 1 TAB(S) ORALLY ONCE A DAY , Notes to Pharmacist: *Please review and pick correct strength-formulation from Evinoan options. If intended option is not shown, discontinue and re-order from Quick Search*, Taking Calcium 600 + D 600 MG-5 MCG TABLET 1 TAB(S) ORALLY ONCE DAILY , Notes to Pharmacist: *Please review and pick correct strength-formulation from Evinoan options. If intended option is not shown, [...] *Please review and pick correct strength-formulation from [employer] options. If intended option is not shown, discontinue and re-order from Quick Search*, Taking Alendronate Sodium 35 MG Tablet 1 tab(s) orally once a week , Taking Atorvastatin Calcium 20 MG Tablet 1 tab(s) orally once a day , Taking Montelukast Sodium 10 MG Tablet 1 tab(s) orally once a day , Medication List reviewed and reconciled with the patient * Allergies: N .K.D.A. Objective: * Vitals: N urse: be, Pain: 0, Temp: 97.7, RR: 18, HR: 72, BP: 120/72, Ht: 61.25, Wt: 129, BMI:24.17. * Examination: E ndocrinology: General Appearance: N AD, pleasant. Neck n o thyromegaly, no lymphadenopathy. Heart: R egular Rate and Rhythm, no murmur, rubs or gallops. Lungs: d ecreased air entry at bases, clear. Abdomen: s oft, NT/ND, BS present. Extremities: P ulses 2 plus bilaterally, nicotine stained nails . Skin: n ormal, no rash,. Neurologic Exam: A lert and oriented x 3. ? Assessment: * Assessment: 1. H ypothyroidism, unspecified type - E03.9 (Primary) 2 . P ure hypercholesterolemia - E78.00 3 . V itamin D deficiency - E55.9 4 . S easonal allergies - J30.2 5 . T obacco use - Z72.0 6 . A rthralgia of multiple sites - M25.50 7 . O steopenia of multiple sites - M85.89? Plan: * Treatment: 2. P ure hypercholesterolemia L AB: LIPID PANEL, STANDARD (7600) L AB: COMPREHENSIVE METABOLIC PANEL (76585) L AB: TSH W/REFLEX TO FT4 (51954) Notes: continue statin therapy, FLP today, goal LDL < 100 3. V itamin D deficiency Notes: Continue oral replacement 4. S easonal allergies Notes: continue singulair and xyzal 5. T obacco use Notes: encouraged cessation, not ready 6. A rthralgia of multiple sites Clinical Notes: Improved overall 7. O steopenia of multiple sites Refill Alendronate Sodium Tablet, 35 MG, 1 tab(s), orally, once a week, 84 days, 12, Refills 3.? Clinical Notes: tolerating fosamax, repeat DEXA 2026 8. O thers Referral To: Reason:Dr Land for screening colonoscopy * Follow Up: 6 Months * * Sign off status: Completed true * Provider: DARCY Bajwa Date: 12/25/2024 Generated for Stiven montilla/Cj/Laci on: 12/25/2024 08:42 AM EDT History and Physical Notes * Examination Category Sub-Category Detail Notes Category Not es Endocrinology Neck no thyromegaly, no lymphade nopathy Heart: Regular Rate and Rhy thm, no murmur, rubs or gallops Lungs: decreased air entry at bases, clear Abdomen: soft, NT/ND, BS pres ent Extremities: Pulses 2 plus bilate rally, nicotine stained nails General Appearance: NAD, pleasant Skin: normal, no rash, Neurologic Exam: Alert and oriented x 3 Consultation Request Notes Referral Date Referring Provider Referred Provider Not es 12/25/[address] Allran fo r screening colonoscopy
--- OUTSIDE RECORDS SUMMARY | 2024-12-25 08:42 | XMS_ITS | Patient Health Record ---
Author Organization [facility] Address [address] [place] [address] Care Team Providers Care Costume Maker Name Role Phone Can Isaacs Primary Care Provider [phone] Kasandra Martin Unavailable [phone] Can Isaacs Unavailable Unavailable Migration, Provider Unavailable Unavailable Allergies No Known Allergies Results Component Value Reference Range Notes COMPREHENSIVE METABOLIC PANE L (60272) Reviewed date:02/08/2024 02:13:08 PM Interpretation: Performing Lab:CB, [facility] Usro9648 [facility], [facility] ManorRvmeUN[address] Fabián Louise Notes/Report: NON-FASTING; NON-FASTING GLUCOSE 90 65-99 mg/dL Fasting reference interval UREA NITROGEN (BUN) 7 7-25 mg/dL CREATININE 0.57 0.50-1.05 mg/dL EGFR 100 > OR = 60 mL/min/1.73m2 BUN/CREATININE RATIO SEE NOTE: 11-25 (calc) Not Reported: BUN and Creatinine are within reference range. SODIUM 139 135-146 mmol/L POTASSIUM 4.1 3.5-5.3 mmol/L CHLORIDE 104 98-110 mmol/L CARBON DIOXIDE 27 20-32 mmol/L CALCIUM 9.3 8.6-10.4 mg/dL PROTEIN, TOTAL 6.5 6.1-8.1 g/dL ALBUMIN 4.1 3.6-5.1 g/dL GLOBULIN 2.4 1.9-3.7 g/dL (calc) ALBUMIN/GLOBULIN RATIO 1.7 1.0-2.5 (calc) BILIRUBIN, TOTAL 0.8 0.2-1.2 mg/dL ALKALINE PHOSPHATASE 102 37-153 U/L AST 15 10-35 U/L ALT 11 6-29 U/L TSH W/REFLEX TO FT4 ([id number]) Reviewed date:02/08/2024 02:13:08 PM Interpretation: Performing Lab:[facility] Dnfb[address] [place], [facility] Gran[facility] ManorAdoyMD[address] Fabián Louise Notes/Report: NON-FASTING; NON-FASTING TSH W/REFLEX TO FT4 0.77 0.40-4.50 mIU/L CT Scan : Chest, Lung Cancer Screening Reviewed date:07/13/2024 02:27:46 PM Interpretation: Performing Lab: Notes/Report: DEXA Hip and Spine - Screeni ng Reviewed date:07/13/2024 02:27:46 PM Interpretation: Performing Lab: Notes/Report: Mammogram : Bilateral Reviewed date:04/09/2024 09:38:55 AM Interpretation: Performing Lab: Notes/Report: X ray : Shoulder, Right Reviewed date:06/27/2024 10:06:28 AM Interpretation: Performing Lab: Notes/Report: X ray : Elbow, Right Reviewed date:06/26/2024 01:29:34 PM Interpretation: Performing Lab: Notes/Report: VITAMIN D,25-OH,TOTAL,IA (17 306) Reviewed date:06/26/2024 01:32:33 PM Interpretation: Performing Lab:[facility] Nzin[address] [facility], [facility] ManorOxdpPH[address] Fabián Louise Notes/Report: NON-FASTING; NON-FASTING; NON-FASTING; NON-FASTING; NON-FAST FASTING:YES FASTING: YES VITAMIN D,25-OH,TOTAL,IA 53 30-100 ng/mL Vitamin D Status 25-OH Vitamin D: Deficiency: <20 ng/mL Insufficiency: 20 - 29 ng/mL Optimal: > or = 30 ng/mL For 25-OH Vitamin D testing on patients on D2-supplementation and patients for whom quantitation of D2 and D3 fractions is required, the QuestAssureD(TM) 25-OH VIT D, (D2,D3), LC/MS/MS is recommended: order code 44026 (patients >2yrs). See Note 1 Note 1 For additional information, please refer to http://[employer]/faq/TBJ535 (This link is being provided for informational/ educational purposes only.) TSH W/REFLEX TO FT4 (56723) Reviewed date:06/26/2024 01:32:30 PM Interpretation: Performing Lab:[facility], [place] OverstocksJlmgCX[address] Fabián Louise Notes/Report: NON-FASTING; NON-FASTING; NON-FASTING; NON-FASTING; NON-FAST FASTING:YES FASTING: YES TSH W/REFLEX TO FT4 1.36 0.40-4.50 mIU/L C-REACTIVE PROTEIN (4420) Reviewed date:06/26/2024 01:32:55 PM Interpretation: Performing Lab:[facility] [address], AlgramoSbaeLE[address] Fabián Louise Notes/Report: NON-FASTING; NON-FASTING; NON-FASTING; NON-FASTING; NON-FAST FASTING:YES FASTING: YES C-REACTIVE PROTEIN <3.0 <8.0 mg/L SED RATE BY MODIFIED WESTERG KRISTEN (809) Reviewed date:06/26/2024 01:32:44 PM Interpretation: Performing Lab:[facility] [address], AlgramoOsguKK[address] Fabián Louise Notes/Report: NON-FASTING; NON-FASTING; NON-FASTING; NON-FASTING; NON-FAST FASTING:YES FASTING: YES SED RATE BY MODIFIED WESTERGREN 19 < OR = 30 mm/h CBC (INCLUDES DIFF/PLT) (639 9) Reviewed date:06/26/2024 01:32:37 PM Interpretation: Performing Lab:[facility] [address], [place] OverstocksSahzWK[address] Fabián Louise Notes/Report: NON-FASTING; NON-FASTING; NON-FASTING; NON-FASTING; NON-FAST FASTING:YES FASTING: YES WHITE BLOOD CELL COUNT 7.0 3.8-10.8 Thousand/ uL RED BLOOD CELL COUNT 4.66 3.80-5.10 Million/uL HEMOGLOBIN 15.3 11.7-15.5 g/dL HEMATOCRIT 44.2 35.0-45.0 % MCV 94.8 80.0-100.0 fL MCH 32.8 27.0-33.0 pg MCHC 34.6 32.0-36.0 g/dL For adults, a slight decrease in the calculated MCHC value (in the range of 30 to 32 g/dL) is most likely not clinically significant; however, it should be interpreted with caution in correlation with other red cell parameters and the patient's clinical condition. RDW 11.7 11.0-15.0 % PLATELET COUNT 346 140-400 Thousand/uL MPV 11.5 7.5-12.5 fL ABSOLUTE NEUTROPHILS [phone] cells/uL ABSOLUTE LYMPHOCYTES 4714 800-2234 cells/uL ABSOLUTE MONOCYTES 469 200-950 cells/uL ABSOLUTE EOSINOPHILS 91 15-500 cells/uL ABSOLUTE BASOPHILS 63 0-200 cells/uL NEUTROPHILS 72.8 LYMPHOCYTES 18.3 MONOCYTES 6.7 EOSINOPHILS 1.3 BASOPHILS 0.9 URIC ACID (905) Reviewed date:06/26/2024 01:32:52 PM Interpretation: Performing Lab:[facility] [address]se[address] [employer], [facility] Granite ManorUwwqNS[address] Fabián Louise Notes/Report: NON-FASTING; NON-FASTING; NON-FASTING; NON-FASTING; NON-FAST FASTING:YES FASTING: YES URIC ACID 4.0 2.5-7.0 mg/dL Therapeutic ta rget for gout patients: <6.0 mg/dL COMPREHENSIVE METABOLIC PANE L (75670) Reviewed date:06/26/2024 01:32:48 PM Interpretation: Performing Lab:[facility] Eapm[address] [place]eteCF[place] [facility], [facility] Gran[facility] ManorOjxpWU[address] Fabián Louise Notes/Report: NON-FASTING; NON-FASTING; NON-FASTING; NON-FASTING; NON-FAST FASTING:YES FASTING: YES GLUCOSE 95 65-99 mg/dL Fasting reference interval UREA NITROGEN (BUN) 6 7-25 mg/dL CREATININE 0.65 0.50-1.05 mg/dL EGFR 96 > OR = 60 mL/min/1.73m2 BUN/CREATININE RATIO 9 6-22 (calc) SODIUM 141 135-146 mmol/L POTASSIUM 4.2 3.5-5.3 mmol/L CHLORIDE 102 98-110 mmol/L CARBON DIOXIDE 28 20-32 mmol/L CALCIUM 9.5 8.6-10.4 mg/dL PROTEIN, TOTAL 6.7 6.1-8.1 g/dL ALBUMIN 4.3 3.6-5.1 g/dL GLOBULIN 2.4 1.9-3.7 g/dL (calc) ALBUMIN/GLOBULIN RATIO 1.8 1.0-2.5 (calc) BILIRUBIN, TOTAL 0.6 0.2-1.2 mg/dL ALKALINE PHOSPHATASE 123 37-153 U/L AST 18 10-35 U/L ALT 14 6-29 U/L LIPID PANEL, STANDARD (7600) Reviewed date:06/26/2024 01:32:41 PM Interpretation: Performing Lab:[facility]-[address], Alex HernandesMlkdAA[address] Fabián Louise Notes/Report: NON-FASTING; NON-FASTING; NON-FASTING; NON-FASTING; NON-FAST FASTING:YES FASTING: YES CHOLESTEROL, TOTAL 164 <200 mg/dL HDL CHOLESTEROL 76 > OR = 50 mg/dL TRIGLYCERIDES 84 <150 mg/dL LDL-CHOLESTEROL 72 Reference range: <100 Desirable range <100 mg/dL for primary prevention; <70 mg/dL for patients with CHD or diabetic patients with > or = 2 CHD risk factors. LDL-C is now calculated using the Andry-Ford calculation, which is a validated novel method providing better accuracy than the Friedewald equation in the estimation of LDL-C. Andry SS et al. JOÃO. 2013;310(19): 0771-0665 (http://education.AlchemyAPI/faq/XJD256) CHOL/HDLC RATIO 2.2 <5.0 (calc) NON HDL CHOLESTEROL 88 <130 mg/dL (calc) For patients with diabetes plus 1 major ASCVD risk factor, treating to a non-HDL-C goal of <100 mg/dL (LDL-C of <70 mg/dL) is considered a therapeutic option. Reason For Referral Reason Screening CT chest Screening DEXA Diagnosis 1 Medicare annual well ness visit, subsequent (Z00.00) Referral Organization [facility] Referring Provider First Name Kasandra Referring Provider Last Name Veronica Referring Provider Speciality Family [facility] ctice Referred Organization [facility] Referred Address [address] [place],[address],[place] Referred Provider Specialty Diagnostic R adiology General Notes Cassandra Peck 2024 11:41:42 AM >sent to [facility] to schedule Referral Priority Routine Referral Appointment Date 07/12/2024 Reason Ortho at [facility] - mild arthritis in right shoulder - 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 Diagnosis 1 Pain, joint, shoulde r, right (M25.511) Referral Organization [facility] Referring Provider First Name Kasandra Referring Provider Last Name Veronica Referring Provider [facility] ctice Referred Organization [facility] Referred Address [address] [place],[address],[place] Referred Provider Specialty Orthopedic S urgery General Notes Cassandra Peck 2024 12:30:02 PM >patient informed of appt Referral Priority Routine Referral Appointment Date 06/28/[address] [place] for screen ing colonoscopy Referral Organization [facility] Referring Provider First Name Kasandra Referring Provider Last Name Veronica Referring Provider [facility] ctice Referral Priority Routine Medications Medication SIG (Take, Route, Frequency, Duration) Notes Start Date End Date Status Alendronate Sodium 35 MG 1 tab(s) orally once a week; Duration: 84 days 07/13/2024 Active Co Q 10 100 MG 1 cap(s) orally once a day Active Atorvastatin Calcium 20 MG 1 tab(s) orally once a day; Duration: 90 days Active Montelukast Sodium 10 MG 1 tab(s) orally once a day; Duration: 90 days Active Euthyrox 75 MCG (0.075 MG) 1 TAB(S) ORALLY ONCE A DAY; Duration: 90 DAYS *Please review and pick correct strength-formulati on from Promuc options. If intended option is not shown, discontinue and re-order from Quick Search* Active Levocetirizine Dihydrochloride 5 MG 1 tab(s) orally once a day (in the evening) as needed for allergies; Duration: 30 days 03/07/2023 Active ALBUTEROL (EQV-PROVENTIL HFA) 90 MCG/INH 2 PUFF(S) INHALED EVERY 6 HOURS; Duration: 30 DAYS *Please review for potential replacement for e-prescription and drug interaction check* 10/10/2023 Active Vitamin D3 50 MCG 1 TAB(S) [...] discontinue and re-order from Quick Search* Active Immunizations Vaccine Route Administration Date Status Comme nts Arexvy Unknown 03/12/2024 Administered Boostrix Unknown 06/23/2020 Administered Covid Moderna Unknown 08/06/2020 Administered Covid Moderna Unknown 09/03/2020 Administered Covid Moderna Unknown 04/03/2021 Administered Flublok IM Intramuscular 01/31/2020 Administered FLUZONE 6MO - OLDER IM Intramuscular 03/20/2019 Administered Fluzone High Dose IM Intramuscular 03/01/2022 Administered Influenza-Fluzone 3+years (NON-MEDICARE) IM Intramuscular 04/05/2017 Administered Manuf-Seqirus Lot # [id number] Influenza-Fluzone 3+years (NON-MEDICARE) IM Intramuscular 02/13/2018 Administered Pneumovax 23 IM Intramuscular 02/13/2018 Administered Prevnar PCV-13 (Pneumococcal conjugate 13) Unknown 05/12/2021 Administered Prevnar PCV-20 (Pneumococcal conjugate 20) Unknown 05/26/2023 Administered SHINGRIX Unknown 04/13/2020 Administered SHINGRIX Unknown 06/23/2020 Administered Social History Tobacco Use: Social History Observation Description Date Details (start date - stop date) Current Smoker NA - NA Smoking: Question Answer Notes Are you a: current smoker How often do you smoke cigarettes? every day How many cigarettes a day do you smoke? 11-20 Problems Problem Type SNOMED Code ICD Code Onset Dates Problem Status W/U Status Risk Notes Problem Chronic pain (30029811) Other chronic pain (G89.29) Active confirmed Problem Disorder of bone (68041716) Other specified disorders of bone density and structure, unspecified site (M85.80) Active confirmed Problem Nasal congestion (73731293) Nasal congestion (R09.81) Active confirmed Problem Impaired fasting glucose (211863934) Impaired fasting glucose (R73.01) Active confirmed Problem Tobacco use (866702969) Tobacco use (Z72.0) Active confirmed Problem Postmenopausal state (45526511) Asymptomatic menopausal state (Z78.0) Active confirmed Problem Vitamin D deficiency (39111599) Vitamin D deficiency (E55.9) Active confirmed Problem Mammogram - screenin g (19840232) Visit for screening mammogram (Z12.31) Active confirmed Problem Seasonal allergy (731203672) Seasonal allergies (J30.2) Active confirmed Problem Acute exacerbation o f chronic obstructive airways disease (437621819) COPD exacerbation (J44.1) Active confirmed Problem Mammography abnormal (398925138) Abnormal mammogram of right breast (R92.8) Active confirmed Problem Pulmonary nodule (839577144) Pulmonary nodule (R91.1) Active confirmed Problem Hypothyroidism (96011478) Hypothyroidism, unspecified type (E03.9) Active confirmed Problem Pure hypercholesterolemia (529228364) Pure hypercholesterolemia (E78.00) Active confirmed Problem Personal history of tobacco use (Z87.891) Active confirmed Problem Normal body mass index (35933752) BMI 24.0-24.9, adult (Z68.24) Active confirmed Problem Benign paroxysmal positional vertigo (415524927) Postural vertigo, unspecified laterality (H81.10) Active confirmed Problem Fibrocystic breast changes (25061505) Fibrocystic disease of right breast (N60.11) Active confirmed Vital Signs Heart Rate 72 /min 12/25/2024 Temperature 97.7 degrees Fahrenheit 12/25/2024 Blood pressure diastolic 72 mm Hg 12/25/2024 Height 61.25 in 12/25/2024 Blood pressure systolic 120 mm Hg 12/25/2024 Weight 129 lbs 12/25/2024 BMI 24.17 kg/m2 12/25/2024 Encounters Encounter Location Date Provider Diagnosis [facility] [address] [place] [address] 09/08/2024 Provider Migration [facility] [address] [place] [address] 02/07/2024 Kasandra Martin Hypothyroidism, unsp ecified type E03.9 ; Pure hypercholesterolemia E78.00 ; Vitamin D deficiency E55.9 ; Seasonal allergies J30.2 ; BMI 23.0-23.9, adult Z68.23 and Tobacco use Z72.0 [facility] [address] [facility] [address] [place] [address] 06/25/2024 Kasandra Martin Hypothyroidism, unsp ecified type E03.9 ; Medicare annual wellness visit, subsequent Z00.00 ; Pure hypercholesterolemia E78.00 ; Vitamin D deficiency E55.9 ; Seasonal allergies J30.2 ; Tobacco use Z72.0 ; Arthralgia of multiple sites M25.50 ; Right elbow pain M25.521 ; Pain, joint, shoulder, right M25.511 ; BMI 24.0-24.9, adult Z68.24 ; Personal history of tobacco use Z87.891 and Asymptomatic postmenopausal state Z78.0 [facility] [address] [facility] [address] [place], [place] [address] 12/25/2024 Kasandra Martin Hypothyroidism, unsp ecified type E03.9 ; Pure hypercholesterolemia E78.00 ; Vitamin D deficiency E55.9 ; Seasonal allergies J30.2 ; Tobacco use Z72.0 ; Arthralgia of multiple sites M25.50 and Osteopenia of multiple sites M85.89 [facility] [address] [facility] [address] [facility] [address] [place] [address] 03/19/2024 Kasandra Martin Breast cancer screen ing by mammogram Z12.31 [facility] [address] [place] [address] 06/26/2024 Kasandra Martin Asymptomatic menopau tisha state Z78.0 and History of nicotine dependence Z87.891 [facility] [address] [facility] [address] [place] [address] 07/13/2024 Kasandra Martin Assessments Encounter Date Diagnosis (ICD Code) Assessment Notes Treatment Notes Treatment Clinical Notes Section Notes 03/19/2024 Breast cancer screen ing by mammogram (ICD-10 - Z12.31) 06/25/2024 Hypothyroidism, unspecified type (ICD-10 - E03.9) Continue oral replacement, monitoring labs today as noted 02/07/2024 Hypothyroidism, unspecified type (ICD-10 - E03.9) Continue oral replacement, monitoring labs today as noted 02/07/2024 Pure hypercholesterolemia (ICD-10 - E78.00) continue statin therapy, FLP in September was in desired range 06/25/2024 Medicare annual wellness visit, subsequent (ICD-10 - Z00.00) 12/25/2024 Hypothyroidism, unspecified type (ICD-10 - E03.9) Continue oral replacement, monitoring labs today as noted 12/25/2024 Pure hypercholesterolemia (ICD-10 - E78.00) continue statin therapy, FLP today, goal LDL < 100 06/26/2024 Asymptomatic menopau tisha state (ICD-10 - Z78.0) 06/26/2024 History of nicotine dependence (ICD-10 - Z87.891) 12/25/2024 Vitamin D deficiency (ICD-10 - E55.9) Continue oral replacement 02/07/2024 Vitamin D deficiency (ICD-10 - E55.9) Continue oral replacement, normal level on September labs 06/25/2024 Pure hypercholesterolemia (ICD-10 - E78.00) continue statin therapy, FLP in September was in desired range 06/25/2024 Vitamin D deficiency (ICD-10 - E55.9) Continue oral replacement 02/07/2024 Seasonal allergies (ICD-10 - J30.2) continue singulair and xyzal 12/25/2024 Seasonal allergies (ICD-10 - J30.2) continue singulair and xyzal 12/25/2024 Tobacco use (ICD-10 - Z72.0) encouraged cessation, not ready 02/07/2024 BMI 23.0-23.9, adult (ICD-10 - Z68.23) stable weight 06/25/2024 Seasonal allergies (ICD-10 - J30.2) continue singulair and xyzal 06/25/2024 Tobacco use (ICD-10 - Z72.0) encouraged cessation, not ready 02/07/2024 Tobacco use (ICD-10 - Z72.0) encouraged cessation, not ready 12/25/2024 Arthralgia of multip le sites (ICD-10 - M25.50) Improved overall 12/25/2024 Osteopenia of multip le sites (ICD-10 - M85.89) tolerating fosamax, repeat DEXA 202606/25/2024 Arthralgia of multip le sites (ICD-10 - M25.50) 06/25/2024 Right elbow pain (ICD-10 - M25.521) 06/25/2024 Pain, joint, shoulde r, right (ICD-10 - M25.511) 06/25/2024 BMI 24.0-24.9, adult (ICD-10 - Z68.24) normal/stable 06/25/2024 Personal history of tobacco use (ICD-10 - Z87.891) 06/25/2024 Asymptomatic postmenopausal state (ICD-10 - Z78.0) 06/25/2024 Other Plan Of Treatment Pending Test Test Name Order Date DEXA Hip and Spine - Screening Physical Therapy 11/08/2018 Mammogram : Bilateral 03/28/2020 H-CBC with AUTO DIFF 02/25/2014 H-CBC with AUTO DIFF 12/11/2013 H-VITAMIN B12 02/25/2014 H-BMP 12/11/2013 H-LIPID PANEL 02/25/2014 H-TSH 02/25/2014 H-TSH 12/11/2013 H-FREE T4 12/11/2013 H-T3 TOTAL 12/11/2013 H-VIT D, 25-HYDROXY 02/25/2014 C-T3 03/01/2013 C-TSH 03/01/2013 C-FREE T4 03/01/2013 M-BUN & Creatinine 08/24/2018 CT Scan : Chest, Lung Cancer Screening 0 06/25/2024 Rapid Covid Antigen 09/15/2021 LIPID PANEL, STANDARD (7600) 12/25/2024 COMPREHENSIVE METABOLIC PANEL (REFL) (37 015) 09/02/2022 COMPREHENSIVE METABOLIC PANEL (60677) TSH W/REFLEX TO FT4 (50334) 12/25/2024 Next Appt Details Provider Name:Kasandra Armen Mcdonald ce, 06/27/2025 08:00:00 AM, [address], [place], [address], Insurance Providers Payer Name Payer Address Payer Phone Subscriber Number Group Number Insured Name Patient Relationship to Insured Coverage Start Date Coverage End Date [employer] MEDICARE [address] [address] [place] [address] [id number] Lena Kwok Self - patient is the insured Medical (General) History Medical History History ICD Code Hypothyroidism 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
[2024-12-25 09:21] LABS: Alanine Aminotransferase 15 U/L (12-78); Albumin Level 4.1 g/dl (3.5-5.0); Albumin/Globulin Ratio 1.8 (1.1-1.8); Alkaline Phosphatase 117 U/L (38-126); Anion Gap 9.1 mEq/L (5-15); Aspartate Amino Transferase 24 U/L (14-36); Bilirubin,Total 1.1 mg/dl (0.2-1.3); Blood Urea Nitrogen 5 mg/dl (7-17); Calcium 9.5 mg/dl (8.4-10.2); Carbon Dioxide 29 mmol/L (22.0-30.0); Chloride 104 mmol/L (98-107); Cholesterol 151 mg/dl (140-200); Creatinine,Serum 0.60 mg/dl (0.52-1.04); Estimated Glomerular Filt Rate 99 ml/min (>60); GFR (African American) 120 ML/MIN (>60); Globulin 2.3 g/dL (1.3-3.2); Glucose 104 mg/dl (74-100); HDL Cholesterol 66 mg/dl (40-60); Potassium 4.1 mmoL/L (3.5-5.1); Sodium 138 mmol/L (136-145); Total Protein,Serum 6.4 g/dl (6.3-8.2); Triglycerides 86 mg/dl (30-150)
[2024-12-25 09:38] LABS: Free T4 (Free Thyroxine) 1.44 ng/dl (0.78-2.19)
[2024-12-25 09:51] LABS: Thyroid Stimulating Hormone 1.08 uIU/mL (0.465-4.68)
[2024-12-25 11:01] LABS: Hemoglobin A1C 5.5 % (4.0-6.0)
== END 2024-12-25 23:59 | disposition home or self-care (01) ==
LOC: LAB 08:33
PROVIDERS: PCP Nurse Practitioner Family; Visit Provider Nurse Practitioner Family
DX: E03.9 Hypothyroidism, unspecified (principal); E78.00 Pure hypercholesterolemia, unspecified
CPT/HCPCS: 36415; 80053; 80061; 83036; 84439; 84443

== ENCOUNTER 2025-01-25 07:25 | Day surgery (SDC) | payer MEDICARE, SELFPAY ==
[2025-01-22 11:34] VITALS: BMI 25.2
--- NOTE | 2025-01-25 06:10 | P.HP_ITS ---
HPI HPI HPI: Patient is a 69-year-old female with apparent history of hypothyroidism, hypertriglyceridemia, osteoporosis who presents for colonoscopy. Dr. Finn performed colonoscopy on 12/11/2002 which was normal and she had follow-up colonoscopy 06/26/2015 which was reportedly normal. 5 to 6-year follow-up colonoscopy was recommended. . [facility] Disclaimer: The information contained in this section may have been updated after the patient was seen, as this information can be updated by other users. Medical History (Updated 01/25/25 @ 08:31 by Jay Land MD) Osteoporosis Cleft palate Allergies Hyperlipidemia Hypothyroid Surgical History History of facial surgery Hx of colonoscopy History of arthroscopy of right knee H/O tubal ligation Family History Other Family history of diabetes mellitus type II Social History (Updated 01/25/25 @ 07:58 by Victor M Barakat CRNA) Smoking Status: Current every day smoker tobacco type: cigarettes packs per day: 1 second hand exposure: Yes alcohol intake: never substance use type: denies use current occupational status: retired Travel in the last 8 weeks?: None household members: spouse current occupational exposures/hazards: No caffeine: Yes Have you lived/traveled outside US in past 30 days?: No Contact w/someone who lives/traveled outside US past 30 days?: No Exposure to someone with infectious disease in past 14 days?: No Do you have a fever (greater than 100.4 F or 38 C)?: No Have you tested positive for COVID-19?: No Exposed to someone with COVID-19 in past 14 days?: No Do you have a sore throat?: No Do you have a cough?: No Do you have any weakness?: No Are you experiencing any nausea/vomitting?: No Do you have any diarrhea?: No Are you experiencing any unusual bleeding?: No Do you have any muscle aches/pain?: No Do you have any abdominal pain?: No Are you experiencing loss of taste or smell?: No Other Medical History Have you received the Flu Vaccine for this season: Yes Have you received the Pneumonia Vaccine: Yes Meds Home Medications and Allergies Home Medications ?Medication ?Instructions ?Recorded ?Confirmed ?Type atorvastatin 20 mg tablet 20 mg PO DAILY Cholesterol 0 12/12/22 01/25/25 History levothyroxine 75 mcg tablet 75 mcg PO DAILY Supplement 12/12/22 01/22/25 History montelukast 10 mg tablet 10 mg PO DAILY Allergy Sympt oms 12/12/22 01/25/25 History sodium,potassium,mag sulfates 17.5 See Rx Instructions PO .COMPLEX 12/26/24 01/25/25 Rx gram-3.13 gram-1.6 gram oral soln #354 mL (Suprep Bowel Prep Kit) alendronate 35 mg tablet 35 mg PO WEEKLY 01/22/25 History New Prescriptions to Start Prescriptions: Allergies Allergy/AdvReac Type Severity Reaction Status Date / Time No Known Allergies Allergy Verified 01/25/25 07:45 Exam Data for Last 24 hours I & O for Last 24 hours: Intake & Output 01/22/25 01/23/25 01/24/25 01/25/25 11:59 11:59 11:59 11:59 Weight 129 lb Constitutional Constitutional: no acute distress *Routine HEENT Exam Head: Present normocephalic Eye: Present EOMI and PERRL ENT: Present mucous membranes moist *Routine Neck Exam Neck: Present supple; Absent lymphadenopathy *Routine Respiratory Exam Respiratory: Present CTA bilaterally *Routine Cardiovascular Exam Cardiovascular: Present RRR *Routine Abdominal Exam Abdominal: Present soft and normoactive bowel sounds; Absent tenderness *Routine Rectal Exam Rectal:: deferred *Routine Genitalia Exam Genitalia:: deferred *Routine Extremities Exam Extremities: Absent cyanosis, clubbing or edema *Routine Skin Exam Skin: Present warm; Absent rash *Routine Neurological Exam Neurological: Present alert and oriented X3 Assessment and Plan *Assessment and plan (1) Encounter for screening colonoscopy: Status: Acute Category: Medical Code(s): Z12.11 - Encounter for screening for malignant neoplasm of colon Plan Colonoscopy
[2025-01-25 07:34] VITALS: BP 122/66; PULSE 90; RESP 18; TEMP 36.2; O2SAT 96; BMI 25.2
[2025-01-25] MEDS: LACTATED RINGERS 1000ML 1,000 ML 50 ML IV (07:49)
--- NOTE | 2025-01-25 07:57 | EXP.ANES.CKL ---
[facility] Disclaimer: The information contained in this section may have been updated after the patient was seen, as this information can be updated by other users. Medical History Osteoporosis Cleft palate Allergies Hyperlipidemia Hypothyroid Surgical History History of facial surgery Hx of colonoscopy History of arthroscopy of right knee H/O tubal ligation Family History Other Family history of diabetes mellitus type II Social History Smoking Status: Current every day smoker tobacco type: cigarettes packs per day: 1 second hand exposure: Yes alcohol intake: never substance use type: denies use current occupational status: retired Travel in the last 8 weeks?: None household members: spouse current occupational exposures/hazards: No caffeine: Yes [facility] Anesthesia Checklist Patient Identification Patient Identification: Arm Band and Verbal (Name & ) Structural Data Admitted From: Home Planned Operative Procedure/s: colonoscopy Consent for Planned Operative Procedure(s) Verified: Yes Verified Documents: Surgical Consent NPO Status Verified Time NPO: 00:00 Chart Verification Results Verified: None Additional verifications Anesthesia Reactions: No Airway Assessment Mallampati Score:: Class II C-Spine Mobility Assessed: Yes TMJ Mobility Assessed: Yes Dentition: Poor Dentition (Missing teeth, none loose) Neurological Assessment Level of Consciousness: Awake, Alert and Appropriate Hx Seizures: No Numbness or tingling in extremities: No Anesthesia Plan Anesthesia Risk discussed: Yes Anesthesia Plan: Verified ASA Class: II Anesthesia Type: MAC
--- NOTE | 2025-01-25 08:31 | P.PCN_ITS ---
Procedure: Date: 01/25/25 Patient Date of :: 1955 Procedure Performed:: Total colonoscopy with polypectomy using hot snare Indications:: Patient is a 69-year-old female. She has had [address] Finn which have been reportedly normal. Last colonoscopy 06/26/2015. Patient presents for follow-up screening colonoscopy. Performing Provider:: Jay Land MD Referring Provider:: Mirela Martin Sedation:: MAC sedation Procedure:: Patient history was obtained and appropriate physical examination was performed. Patient's medications and allergies were reviewed. Informed consent was obtained after explaining the benefits, alternatives, and risks of the procedure including, but not limited to, bleeding, perforation, missed lesions, and adverse reaction to anesthesia medications. Patient was transported to endoscopy procedure room. Patient was connected to monitoring devices. Throughout the procedure the patient's blood pressure, pulse, and oxygen saturations were monitored continuously. Patient identification and planned procedure were verified by the staff. Patient was positioned in lateral decubitus position. Digital anorectal exam was performed. Variable stiffness Olympus colonoscope was inserted and advanced under direct visualization to the cecum. Adequacy of the colonic preparation was noted. The colonoscope was then slowly withdrawn while caref ully examining the color, texture, anatomy, and integrity of the mucosoa circumferentially. Within the rectum retroflexion was performed. Colonoscope was then withdrawn. Impression: Colonic preparation was good. She did have some redundancy of sigmoid colon. Within the cecum there was flat sessile irregular polyp almost consistent with a confluence of multiple sessile polyps removed in its entirety using a 13 mm hot snare in the distal transverse colon there was an adenomatous appearing polyp removed with hot snare. In the rectosigmoid region there was hyperplastic appearing polyp removed with biopsy forceps. Findings:: Polyps as noted. Recommendations:: Repeat colonoscopy likely 2 or 3 years Complications:: None immediately apparent Estimated blood obtained (mL): 1 Colonoscopy Component Colonoscopy Component Was a colonoscopy performed during today's procedure?: Yes Recommended follow up colonoscopy of at least 10 years?: No If no, follow up colonoscopy recommended in ___ years?: See above Reason for not recommending >/= 10 yr follow-up interval?: See above
[2025-01-25 08:32] VITALS: BP 111/70; PULSE 85; RESP 18; TEMP 36.1; O2SAT 98
[2025-01-25 08:42] VITALS: BP 117/70; PULSE 72; O2SAT 100
[2025-01-25 08:52] VITALS: BP 107/72; PULSE 73; O2SAT 99
[2025-01-25 09:02] VITALS: BP 116/72; PULSE 74; RESP 18; O2SAT 99
== END 2025-01-25 09:02 | disposition home or self-care (01) ==
PROVIDERS: PCP Nurse Practitioner Family; Visit Provider Surgery
PROC: 0DJD8ZZ Inspection of Lower Intestinal Tract, Via Natural or Artificial Opening Endoscopic (ICD-10-PCS; CPT 45380; principal; 2025-01-25 08:30)
DX: Z12.11 Encounter for screening for malignant neoplasm of colon (principal); D12.0 Benign neoplasm of cecum; D12.3 Benign neoplasm of transverse colon; K63.5 Polyp of colon; E03.9 Hypothyroidism, unspecified; F17.210 Nicotine dependence, cigarettes, uncomplicated; M81.0 Age-related osteoporosis without current pathological fracture; E78.5 Hyperlipidemia, unspecified; E78.1 Pure hyperglyceridemia; Z79.890 Hormone replacement therapy; Z79.899 Other long term (current) drug therapy; Z79.83 Long term (current) use of bisphosphonates
CPT/HCPCS: 45380; 45385; 88305; 96360; J2003; J2704; J7120

== ENCOUNTER 2025-04-04 07:41 | Outpatient (CLI) | payer MEDICARE, SELFPAY ==
--- OUTSIDE RECORDS SUMMARY | 2024-09-08 17:30 | XMS_ITS ---
Author Organization [facility] Address [address] [place] [address] Care Team Providers Care Network Controller Name Role Phone Can Isaacs Primary Care Provider Kasandra Martin Unavailable [phone] Can Isaacs Unavailable Unavailable Migration, Provider Unavailable Unavailable REASON FOR VISIT [facility] Conversion Encounter Medications Medication SIG (Take, Route, Frequency, Duration) Notes Start Date End Date Status Euthyrox 75 MCG (0.075 MG) 1 TAB(S) ORALLY ONCE A DAY; Duration: 90 DAYS *Please review and pick correct strength-formulati on from [facility] options. If intended option is not shown, discontinue and re-order from Quick Search* Active ALBUTEROL (EQV-PROVENTIL HFA) 90 MCG/INH 2 PUFF(S) INHALED EVERY 6 HOURS; Duration: 30 DAYS *Please review for potential replacement for e-prescription and drug interaction check* 10/10/2023 Active Atorvastatin Calcium 20 MG 1 tab(s) orally once a day; Duration: 90 days Active Montelukast Sodium 10 MG 1 tab(s) orally once a day; Duration: 90 days Active Levocetirizine Dihydrochloride 5 MG 1 tab(s) orally once a day (in the evening) as needed for allergies; Duration: 30 days 03/07/2023 Active Alendronate Sodium 35 MG 1 tab(s) orally once a week; Duration: 28 days 07/13/2024 Active Calcium 600 + D 600 MG-5 MCG 1 TAB(S) ORALLY ONCE DAILY *Please review and pick correct strength-formulati on from [employer] options. If intended option is not shown, discontinue and re-order from Quick Search* Active Vitamin D3 50 MCG 1 TAB(S) ORALLY ONCE A DAY *Please review and pick correct strength-formulati on from [employer] options. If intended option is not shown, discontinue and re-order from Quick Search* Active Co Q 10 100 MG 1 cap(s) orally once a day Active Encounters Encounter Location Date Provider Diagnosis [facility] [address] [facility] [facility] [address] [place] [address] 09/08/2024 Provider Migration Plan Of Treatment Medication Medication Name Sig Start Date Stop Date Notes Atorvastatin Calcium 20 MG 1 tab(s) oral ly once a day; Duration: 90 days Montelukast Sodium 10 MG 1 tab(s) orally once a day; Duration: 90 days Alendronate Sodium 35 MG 1 tab(s) orally once a week; Duration: 28 days 07/13/2024 Next Appt Details Provider Name:Kasandra Mcdonald , 06/27/2025 08:00:00 AM, [address] [facility], [address], [place], [address], Progress Notes * David YANB:1955 (69 yo F)Acc No.[id number]:09/08/2024 Patient: Lena NEWMAN Provider: Jagjit quevedo Migration :1955 A ge:69 Y S ex:Female Date:09/08/2024 Address:[facility] [address] [place], [id number] Pcp:Can Isaacs Subjective: * Chief Complaints: * [facility] * Medical History: * Medications: T aking Co Q 10 100 MG Capsule 1 cap(s) orally once a day , Taking Vitamin D3 50 MCG TABLET 1 TAB(S) ORALLY ONCE A DAY , Notes to Pharmacist: *Please review and pick correct strength-formulation from [employer] options. If intended option is not shown, discontinue and re-order from Quick Search*, Taking Calcium 600 + D 600 MG-5 MCG TABLET 1 TAB(S) ORALLY ONCE DAILY , Notes to Pharmacist: *Please review and pick correct strength-formulation from [employer] options. If intended option is not shown, discontinue and re-order from Quick Search*, Taking Levocetirizine Dihydrochloride 5 MG Tablet 1 tab(s) orally once a day (in the evening) as needed for allergies , Taking ALBUTEROL (EQV-PROVENTIL HFA) 90 MCG/INH AEROSOL 2 PUFF(S) INHALED EVERY 6 HOURS , Notes to Pharmacist: *Please review for potential replacement for e-prescription and drug interaction check*, Taking Euthyrox 75 MCG (0.075 MG) TABLET 1 TAB(S) ORALLY ONCE A DAY , Notes to Pharmacist: *Please review and pick correct strength-formulation from [employer] options. If intended option is not shown, discontinue and re-order from Quick Search* Objective: * Vitals: Assessment: Plan: * Treatment: * * Electronic signature of Prov pebbles Migration on 04/04/2025 at 07:43 AM EDT Sign off status: Pending * Provider: Jagjit quevedo Migration Date: 0 09/08/2024 Generated for Stiven montilla/Cj/Laci on: 1 07:43 AM EDT
--- OUTSIDE RECORDS SUMMARY | 2025-02-28 06:34 | XMS_ITS ---
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 Phone Can Isaacs Primary Care Provider [phone] Veronica Kasandra Unavailable [phone] Can Isaacs Unavailable Unavailable REASON FOR VISIT orders for mammogram Encounters Encounter Location Date Provider Diagnosis [facility] [address] [place], [place] [address] 02/28/2025 Kasandra Veronica Visit for screening mammogram Z12.31 Assessments Encounter Date Diagnosis (ICD Code) Assessment Notes Treatment Notes Treatment Clinical Notes Section Notes 02/28/2025 Visit for screening mammogram (ICD-10 - Z12.31) Plan Of Treatment Pending Test Test Name Order Date Mammogram : Bilateral 02/28/2025 Next Appt Details Provider Name:Kasandra Armen Mcdonald ce, 06/27/2025 08:00:00 AM, [address], [address], [place], [place], [address], Progress Notes * Jose YAN:1955 (69 yo F)Acc No.[id number]:02/28/2025 Patient: Alysa ZURDO Lena :1955 A ge:69 Y S ex:Female Address:[place], [address] Subjective: * Chief Complaints: * O rders for mammogram * Medical History: * Surgical History: * Hospitalization/Major Diagno stic Procedure: * Medications: Objective: * Vitals: * Physical Examination: Assessment: * Assessment: 1. V isit for screening mammogram - Z12.31 Plan: * Treatment: * Procedure Codes: * true * Date: Generated for Stiven montilla/Cj/Laci on: 07:43 AM EDT
--- NOTE | 2025-04-04 07:44 | MM_ITS ---
PROCEDURE INFORMATION: Exam: MG Bilateral Screening 3D Mammography Exam date and time: 04/04/2025 7:54 AM Age: 69 years old Clinical indication: Screening mammogram TECHNIQUE: Imaging protocol: Bilateral Screening tomosynthesis and 2D mammography including computer-aided detection (CAD) when performed. COMPARISON: 1. MG MM DIG SCREENING MAMM BI W/CAD 03/30/2024 4:27 PM 2. MG MM DIG SCREENING MAMM BI W/CAD 03/21/2023 2:40 PM 3. MG MM DIG SCREENING MAMM BI W/CAD 01/15/2022 9:01 AM FINDINGS: MAMMOGRAPHY: Breast composition: There are scattered areas of fibroglandular density. Mass: None. Architectural distortion: No new or suspicious architectural distortion. Calcifications: No new or suspicious calcifications are present Asymmetric density: No new or suspicious asymmetric density is present Skin thickening: None. Axillary adenopathy: None. IMPRESSION: No mammographic evidence of malignancy. Recommend annual screening mammography unless otherwise clinically indicated. ASSESSMENT: BI-RADS category 1: Negative.
--- OUTSIDE RECORDS SUMMARY | 2025-04-04 07:44 | XMS_ITS | Patient Health Record ---
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 Role Phone Can Isaacs Primary Care Provider Kasandra Martin Unavailable [phone] Can Isaacs Unavailable Unavailable Migration, Provider Unavailable Unavailable Allergies No Known Allergies Results Component Value Reference Range Notes M-Hemoglobin A1C Reviewed date:12/25/2024 07:02:42 PM Interpretation: Performing Lab: Notes/Report: HGBA1C 5.5 4.0-6.0 % < 6% Non-Diabetic Level < 7% Controlled Diabetic Level > 8% Poorly Controlled Diabetic Level VITAMIN D,25-OH,TOTAL,IA (17 306) Reviewed date:06/26/2024 01:32:33 PM Interpretation: Performing Lab:CB, [facility] [facility] Fabián Louise Notes/Report: NON-FASTING; NON-FASTING; NON-FASTING; NON-FASTING; [...] D, (D2,D3), LC/MS/MS is recommended: order code 49351 (patients >2yrs). See Note 1 Note 1 For additional information, please refer to http://[employer].Cooler Planet/faq/BCG366 (This link is being provided for informational/ educational purposes only.) TSH W/REFLEX TO FT4 (48378) Reviewed date:06/26/2024 01:32:30 PM Interpretation: Performing Lab:[facility] [employer]-YABUYe[address], [id number] Fabián Louise Notes/Report: NON-FASTING; NON-FASTING; NON-FASTING; NON-FASTING; NON-FAST FASTING:YES FASTING: YES TSH W/REFLEX TO FT4 1.36 0.40-4.50 mIU/L C-REACTIVE PROTEIN (4420) Reviewed date:06/26/2024 01:32:55 PM Interpretation: Performing Lab:[facility] RingCaptcha[address], [id number] Fabián Louise Notes/Report: NON-FASTING; NON-FASTING; NON-FASTING; NON-FASTING; NON-FAST FASTING:YES FASTING: YES C-REACTIVE PROTEIN <3.0 <8.0 mg/L SED RATE BY MODIFIED RUSLAN PETERSON (809) Reviewed date:06/26/2024 01:32:44 PM Interpretation: Performing Lab:[facility] Grabilitye[address], [id number] Fabián Louise Notes/Report: NON-FASTING; NON-FASTING; NON-FASTING; NON-FASTING; NON-FAST FASTING:YES FASTING: YES SED RATE BY MODIFIED LUISANA 19 < OR = 30 mm/h CBC (INCLUDES DIFF/PLT) (639 9) Reviewed date:06/26/2024 01:32:37 PM Interpretation: Performing Lab:[facility] [address], [id number] Fabián Louise Notes/Report: NON-FASTING; NON-FASTING; NON-FASTING; NON-FASTING; [...] MPV 11.5 7.5-12.5 fL ABSOLUTE NEUTROPHILS 5096 0601-0896 cells/uL ABSOLUTE LYMPHOCYTES 5307 179-2079 cells/uL ABSOLUTE MONOCYTES 469 200-950 cells/uL ABSOLUTE EOSINOPHILS 91 15-500 cells/uL ABSOLUTE BASOPHILS 63 0-200 cells/uL NEUTROPHILS 72.8 LYMPHOCYTES 18.3 MONOCYTES 6.7 EOSINOPHILS 1.3 BASOPHILS 0.9 URIC ACID (905) Reviewed date:06/26/2024 01:32:52 PM Interpretation: Performing Lab:[facility], [employer] Xbcc[address] SystemsteMIDAS Solutions, [id number] Fabián Louise Notes/Report: NON-FASTING; NON-FASTING; NON-FASTING; NON-FASTING; NON-FAST FASTING:YES FASTING: YES URIC ACID 4.0 2.5-7.0 mg/dL Therapeutic ta rget for gout patients: <6.0 mg/dL [facility] ([address]) Reviewed date:06/26/2024 01:32:48 PM Interpretation: Performing Lab:[facility] [employer] [id number], [id number] Fabián Louise Notes/Report: NON-FASTING; NON-FASTING; NON-FASTING; NON-FASTING; [...] (7600) Reviewed date:06/26/2024 01:32:41 PM Interpretation: Performing Lab:[facility], [facility] [facility] HealthHqodDG[address] Fabián Louise Notes/Report: NON-FASTING; NON-FASTING; NON-FASTING; NON-FASTING; NON-FAST FASTING:YES FASTING: YES CHOLESTEROL, TOTAL 164 <200 mg/dL HDL CHOLESTEROL 76 > OR = 50 mg/dL TRIGLYCERIDES 84 <150 mg/dL LDL-CHOLESTEROL 72 Reference range: <100 Desirable range <100 mg/dL for primary prevention; <70 mg/dL for patients with CHD or diabetic patients with > or = 2 CHD risk factors. LDL-C is now calculated using the Andry-Logan calculation, which is a validated novel method providing better accuracy than the Friedewald equation in the estimation of LDL-C. Andry SS et al. JOÃO. 2013;310(40): 1277-1035 (http://education.DGSE.[employer]/faq/NDU058) CHOL/HDLC RATIO 2.2 <5.0 (calc) NON HDL CHOLESTEROL 88 <130 mg/dL (calc) For patients with diabetes plus 1 major ASCVD risk factor, treating to a non-HDL-C goal of <100 mg/dL (LDL-C of <70 mg/dL) is considered a therapeutic option. DEXA Hip and Spine - Screeni ng Reviewed date:07/13/2024 02:27:46 PM Interpretation: Performing Lab: Notes/Report: X ray : Shoulder, Right Reviewed date:06/27/2024 10:06:28 AM Interpretation: Performing Lab: Notes/Report: X ray : Elbow, Right Reviewed date:06/26/2024 01:29:34 PM Interpretation: Performing Lab: Notes/Report: CT Scan : Chest, Lung Cancer Screening Reviewed date:07/13/2024 02:27:46 PM Interpretation: Performing Lab: Notes/Report: M-Free T4 (Free Thyroxine) Reviewed date:12/26/2024 04:44:58 PM Interpretation: Performing Lab: Notes/Report: T4F 1.44 0.78-2.19 ng/dl M-Thyroid Stimulating Hormon e Reviewed date:12/26/2024 04:44:58 PM Interpretation: Performing Lab: Notes/Report: TSH 1.08 0.465-4.68 uIU/mL M-Comprehensive Metabolic Pa starr Reviewed date:12/26/2024 04:44:58 PM Interpretation: Performing Lab: Notes/Report: NA 138 136-145 mmol/L K 4.1 3.5-5.1 mmoL/L CL 104 98-107 mmol/L CO2 29 22.0-30.0 mmol/L GAP 9.1 5-15 mEq/L BUN 5 7-17 mg/dl CREATT 0.60 0.52-1.04 mg/dl GFRAA 120 >60 ML/MIN EGFR 99 >60 ml/min GLU 104 74-100 mg/dl CA 9.5 8.4-10.2 mg/dl BILIT 1.1 0.2-1.3 mg/dl AST 24 14-36 U/L ALT 15 12-78 U/L TP 6.4 6.3-8.2 g/dl ALB 4.1 3.5-5.0 g/dl GLOB 2.3 1.3-3.2 g/dL AGRATIO 1.8 1.1-1.8 ALP 117 38-126 U/L M-Lipid Panel Reviewed date:12/26/2024 04:44:58 PM Interpretation: Performing Lab: Notes/Report: Patient Fasting? Y TRIG 86 30-150 mg/dl CHOL 151 140-200 mg/dl DLDL 59.37 100-129 mg/dL VLDL 17 0-40 mg/dL HDL 66 40-60 mg/dl CHLHDL 2.3 1-3.5 Reason For Referral Reason Screening CT chest Screening DEXA Diagnosis 1 Medicare annual well ness visit, subsequent (Z00.00) Referral Organization [facility] PORSCHE SAUNDERS Referring Provider First Name Kasandra Referring Provider Last Name Veronica Referring Provider [facility] ctice Referred Organization [facility] Referred Address [address] [place] [phone], Referred Provider Specialty Diagnostic R adiology General Cassandra Mccurdy 2024 11:41:42 AM >sent to [facility] to schedule Referral Priority Routine Referral Appointment Date 07/12/2024 Reason Ortho at [facility] - mild arthritis in right shoulder - 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 Diagnosis 1 Pain, joint, shoulde r, right (M25.511) Referral Organization [facility] PORSCHE SAUNDERS Referring Provider First Name Kasandra Referring Provider Last Name Veronica [facility] Referred Organization [facility] Referred Address [address] [place] [phone], Referred Provider Specialty Orthopedic S urgery General Notes Cassandra Peck 2024 12:30:02 PM >patient informed of appt Referral Priority Routine Referral Appointment Date 06/28/[address] Land for screen ing colonoscopy Referral Organization [facility] CHIP Referring Provider First Name Kasandra Referring Provider Last Name Veronica Referring Provider [facility] ctice Referred Organization [facility] Referred Address [address] [place] [phone], Referred Provider Specialty General Surg bony General Cassandra Mccurdy 2024 04:04:10 PM >no answer, letter mailed to patient Referral Priority Routine Referral Appointment Date 01/25/2025 Medications Medication SIG (Take, Route, Frequency, Duration) [...] once a day; Duration: 90 days Active Levothyroxine Sodium 75 MCG TAKE 1 TABLET BY MOUTH ONCE DAILY; Duration: 90 Active Levocetirizine Dihydrochloride 5 MG 1 tab(s) [...] review and pick correct strength-formulati on from [employer] Corporationan options. If intended option is not shown, discontinue and re-order from Quick Search* Active Calcium 600 + D 600 MG-5 MCG 1 TAB(S) ORALLY ONCE DAILY *Please review and pick correct strength-formulati on from [employer]an options. If intended option is not shown, discontinue and re-order from Quick Search* Active Immunizations Vaccine Route Administration Date Status Comme nts SHINGRIX Unknown 04/13/2020 Administered SHINGRIX Unknown 06/23/2020 Administered Prevnar PCV-20 (Pneumococcal conjugate 20) Unknown 05/26/2023 Administered Prevnar PCV-13 (Pneumococcal conjugate 13) Unknown 05/12/2021 Administered Pneumovax 23 IM Intramuscular 02/13/2018 Administered Influenza-Fluzone 3+years (NON-MEDICARE) IM Intramuscular 04/05/2017 Administered Manuf-Seqirus Lot # [id number] Influenza-Fluzone 3+years (NON-MEDICARE) IM Intramuscular 02/13/2018 Administered Fluzone High Dose IM Intramuscular 03/01/2022 Administered FLUZONE 6MO - OLDER IM Intramuscular 03/20/2019 Administered Flublok IM Intramuscular 01/31/2020 Administered Covid Moderna Unknown 08/06/2020 Administered Covid Moderna Unknown 09/03/2020 Administered Covid Moderna Unknown 04/03/2021 Administered Boostrix Unknown 06/23/2020 Administered Arexvy Unknown 03/12/2024 Administered Social History Tobacco Use: Social History [...] W/U Status Risk Notes Problem Chronic pain (40119686) Other chronic pain (G89.29) Active confirmed Problem Disorder of bone (42516604) Other specified disorders of bone density and structure, unspecified site (M85.80) Active confirmed Problem Nasal congestion (94094057) Nasal congestion (R09.81) Active confirmed Problem Impaired fasting glucose (534622908) Impaired fasting glucose (R73.01) Active confirmed Problem Tobacco use (316705442) Tobacco use (Z72.0) Active confirmed Problem Postmenopausal state (85036726) Asymptomatic menopausal state (Z78.0) Active confirmed Problem Vitamin D deficiency (69188489) Vitamin D deficiency (E55.9) Active confirmed Problem Mammogram - screenin g (53426672) Visit for screening mammogram (Z12.31) Active confirmed Problem Seasonal allergy (675435402) Seasonal allergies (J30.2) Active confirmed Problem Acute exacerbation o f chronic obstructive airways disease (186076226) COPD exacerbation (J44.1) Active confirmed Problem Mammography abnormal (835767977) Abnormal mammogram of right breast (R92.8) Active confirmed Problem Pulmonary nodule (751050726) Pulmonary nodule (R91.1) Active confirmed Problem Hypothyroidism (86785740) Hypothyroidism, unspecified type (E03.9) Active confirmed Problem Pure hypercholesterolemia (054931350) Pure hypercholesterolemia (E78.00) Active confirmed Problem Ex-tobacco user (finding) (462964372) Personal history of tobacco use (Z87.891) Active confirmed Problem Normal body mass index (84368134) BMI 24.0-24.9, adult (Z68.24) Active confirmed Problem Benign paroxysmal positional vertigo (360933660) Postural vertigo, unspecified laterality (H81.10) Active confirmed Problem Fibrocystic breast changes (07776033) Fibrocystic disease of right breast (N60.11) Active confirmed Vital Signs Heart Rate 72 /min 12/25/2024 Temperature 97.7 degrees Fahrenheit 12/25/2024 Blood pressure diastolic 72 mm Hg 12/25/2024 Height 61.25 in 12/25/2024 Blood pressure systolic 120 mm Hg 12/25/2024 Weight 129 lbs 12/25/2024 BMI 24.17 kg/m2 12/25/2024 Encounters Encounter Location Date Provider Diagnosis [facility] [address] [facility] [address] [place] [address] 09/08/2024 Provider Migration [facility] [address] [facility] [address] [place] [address] 06/25/2024 Kasandra Martin Hypothyroidism, unsp ecified type [...] use Z87.891 and Asymptomatic postmenopausal state Z78.0 [facility] [address] [facility] [address] [place] [address] 12/25/2024 Kasandra Martin Hypothyroidism, unsp ecified type E03.9 ; Pure hypercholesterolemia E78.00 ; Vitamin D deficiency E55.9 ; Seasonal allergies J30.2 ; Tobacco use Z72.0 ; Arthralgia of multiple sites M25.50 and Osteopenia of multiple sites M85.89 [facility] [address] [facility] [address] [place] [address] 06/26/2024 Kasandra Martin Asymptomatic menopau tisha state Z78.0 and History of nicotine dependence Z87.891 [facility] [address] [facility] [place] [address] 07/13/2024 Kasandra Martin [facility] [address] [facility] [address] [place] [address] 12/25/2024 Kasandra Martin IFG (impaired fastin g glucose) R73.01 [facility] [address] [facility] [place] [address] 02/28/2025 Kasandra Martin Visit for screening mammogram Z12.31 Assessments Encounter Date Diagnosis (ICD Code) Assessment Notes Treatment Notes Treatment Clinical Notes Section Notes 02/28/2025 Visit for screening mammogram (ICD-10 - Z12.31) 12/25/2024 IFG (impaired fastin g glucose) (ICD-10 - R73.01) 12/25/2024 Hypothyroidism, unspecified type (ICD-10 - E03.9) Continue oral replacement, monitoring labs today as noted 12/25/2024 Pure hypercholesterolemia (ICD-10 - E78.00) continue statin therapy, FLP today, goal LDL < 100 06/26/2024 Asymptomatic menopau tisha state (ICD-10 - Z78.0) 06/25/2024 Hypothyroidism, unspecified type (ICD-10 - E03.9) Continue oral replacement, monitoring labs today as noted 06/25/2024 Medicare annual wellness visit, subsequent (ICD-10 - Z00.00) 06/25/2024 Pure hypercholesterolemia (ICD-10 - E78.00) continue statin therapy, FLP in September was in desired range 06/26/2024 History of nicotine dependence (ICD-10 - Z87.891) 12/25/2024 Vitamin D deficiency (ICD-10 - E55.9) Continue oral replacement 12/25/2024 Seasonal allergies (ICD-10 - J30.2) continue singulair and xyzal 06/25/2024 Vitamin D deficiency (ICD-10 - E55.9) Continue oral replacement 06/25/2024 Seasonal allergies (ICD-10 - J30.2) continue singulair and xyzal 12/25/2024 Tobacco use (ICD-10 - Z72.0) encouraged cessation, not ready 12/25/2024 Arthralgia of multip le sites (ICD-10 - M25.50) Improved overall 06/25/2024 Tobacco use (ICD-10 - Z72.0) encouraged cessation, not ready 12/25/2024 Osteopenia of multip le sites (ICD-10 [...] Screening Physical Therapy 11/08/2018 Mammogram : Bilateral 02/28/2025 Mammogram : Bilateral 03/28/2020 H-CBC with AUTO DIFF 12/11/2013 H-CBC with AUTO DIFF 02/25/2014 H-VITAMIN B12 02/25/2014 H-BMP 12/11/2013 H-LIPID PANEL 02/25/2014 H-TSH 02/25/2014 H-TSH 12/11/2013 H-FREE T4 12/11/2013 H-T3 TOTAL 12/11/2013 H-VIT D, 25-HYDROXY 02/25/2014 C-T3 03/01/2013 C-TSH 03/01/2013 C-FREE T4 03/01/2013 M-BUN & Creatinine 08/24/2018 CT Scan : Chest, Lung Cancer Screening 0 06/25/2024 Rapid Covid Antigen 09/15/2021 LIPID PANEL, STANDARD (7600) 12/25/2024 COMPREHENSIVE METABOLIC PANEL (REFL) (37 015) 09/02/2022 COMPREHENSIVE METABOLIC PANEL (69693) TSH W/REFLEX TO FT4 (43681) 12/25/2024 Next Appt Details Provider Name:Kasandra Armen Mcdonald ce, 06/27/2025 08:00:00 AM, [address], [place], [address], Insurance Providers Payer Name Payer Address Payer Phone Subscriber Number Group Number Insured Name Patient Relationship to Insured Coverage Start Date Coverage End Date [facility] MEDICARE [address] [address] [place] [address] [phone] [id number] Lena Kwok Self - patient is the insured Medical (General) History Medical History History ICD Code Hypothyroidism 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
== END 2025-04-04 23:59 | disposition home or self-care (01) ==
LOC: RAD 07:42
PROVIDERS: PCP Nurse Practitioner Family; Visit Provider Nurse Practitioner Family
DX: Z12.31 Encounter for screening mammogram for malignant neoplasm of breast (principal); R92.323 Mammographic fibroglandular density, bilateral breasts
CPT/HCPCS: 77063; 77067